=== PATIENT | male | born 1960 | race Caucasian/White ===

== ENCOUNTER → 2018-06-11 09:21 | Outpatient (CLI) | payer BC, SELFPAY ==
--- NOTE | 2018-06-11 09:26 | US_ITS ---
US abdomen limited History:Moderate quadrant pain Ordering Physician:Syl Dalal MD Patient Age: 57 years Comparison:None Findings: Pancreas:Unremarkable. No obvious mass or abnormal fluid collection. No ductal dilatation Liver:No focal liver lesions demonstrated. Homogeneous echogenicity. No intrahepatic biliary ductal dilatation evident Right Kidney:Unremarkable. Normal size and echogenicity. No hydronephrosis Gallbladder:No gallstones, gallbladder wall thickening, pericholecystic fluid, or biliary dilatation. Small hyperechoic focus is noted along the posterior aspect of the fundus of the gallbladder does not move and does not shadow suggestive of polyp. Normal amount of sludge/concentrated bile. Impression: 1. No gallstones, wall thickening, pericholecystic, or biliary dilatation. 2. Small amount sludge with a small gallbladder polyp .
== END ==
PROVIDERS: PCP Internal Medicine Adolescent Medicine; Visit Provider Internal Medicine Adolescent Medicine
DX: R10.11 Right upper quadrant pain (principal)
CPT/HCPCS: 76705

== ENCOUNTER 2018-06-14 11:12 | Outpatient (CLI) | payer SELFPAY ==
--- NOTE | 2018-06-14 12:11 | PC.NURSE ---
HERE FOR DOT PHYSICAL
== END 2018-06-14 12:57 | disposition home or self-care (01) ==
PROVIDERS: Visit Provider Nurse Practitioner Family
DX: Z02.4 Encounter for examination for driving license (principal)

== ENCOUNTER → 2018-08-09 14:56 | Outpatient (CLI) | payer BC, SELFPAY ==
--- NOTE | 2018-08-09 15:01 | XR_ITS ---
XR shoulder RT min 2V HISTORY: ITS.REASON: BILAT ROTATOR CUFF SYNDROME, BILAT SHOULDER PAIN ORDERING PHYSICIAN: Sly Dalal MD PATIENT AGE: 57 years Comparison: None FINDINGS: No fracture or dislocation. No lytic or blastic change. There is normal mineralization. The joint spaces are well-preserved. No significant degenerative/arthritic changes. No erosive changes evident. IMPRESSION: Negative, no acute finding
--- NOTE | 2018-08-09 15:01 | XR_ITS ---
XR shoulder LT min 2V HISTORY: ITS.REASON: BILAT ROTATOR CUFF SYNDROME, BILAT SHOULDER PAIN ORDERING PHYSICIAN: Sly Dalal MD PATIENT AGE: 57 years Comparison: None FINDINGS: No fracture or dislocation. No lytic or blastic change. There is normal mineralization. The joint spaces are well-preserved. No significant degenerative/arthritic changes. No erosive changes evident. IMPRESSION: Negative, no acute finding
== END ==
PROVIDERS: PCP Internal Medicine Adolescent Medicine; Visit Provider Internal Medicine Adolescent Medicine
DX: M75.102 Unspecified rotator cuff tear or rupture of left shoulder, not specified as traumatic (principal); M25.511 Pain in right shoulder
CPT/HCPCS: 73030

== ENCOUNTER → 2019-01-21 09:57 | Outpatient (CLI) | payer BC, SELFPAY ==
--- NOTE | 2019-01-21 10:15 | XR_ITS ---
XR chest 2V HISTORY: ITS.REASON: HTN,HYPERLIPIDEMIA ORDERING PHYSICIAN: RANDA Cao PATIENT AGE: 58 years COMPARISON: 02/08/2011. FINDINGS: The cardiomediastinal silhouette and pulmonary vascularity are within normal limits. The lungs are clear without infiltrates, suspicious nodules, or pleural effusions. No acute bony abnormalities. IMPRESSION: Negative chest, no acute finding
[2019-01-21 10:21] LABS: Basophils # 0.1 K/mm3 (0-0.2); Basophils % 0.9 % (0.1-2.0); Eosinophils # 0.1 K/mm3 (0.0-0.4); Eosinophils % 1.9 % (0.1-12.0); Hematocrit 43.2 % (42.0-52.0); Lymphocytes # 1.4 K/mm3 (0.7-4.5); Lymphocytes % 22.9 % (10-50); Mean Corpuscular HGB Conc 32.3 g/dL (31.8-35.4); Mean Corpuscular Hemoglobin 29.2 pg (27.0-31.2); Mean Corpuscular Volume 90.3 fl (80-94); Mean Platelet Volume 8.1 fl (7.4-10.4); Monocytes # 0.5 K/mm3 (0.1-1.0); Monocytes % 8.2 % (1.7-9.3); Neutrophils # 4.1 K/mm3 (1.8-7.8); Platelet Count 245 K/mm3 (142-424); Red Blood Count 4.79 M/mm3 (4.60-6.20); Red Cell Distribution Width 13.5 % (11.5-17.5); White Blood Count 6.2 K/mm3 (4.8-10.8)
[2019-01-21 11:39] LABS: Alanine Aminotransferase 49 U/L (12-78); Albumin Level 3.7 gm/dL (3.4-5.0); Alkaline Phosphatase 73 U/L (46-116); Anion Gap 12.1 mEq/L (5-15); Aspartate Amino Transferase 29 U/L (15-37); Bilirubin,Direct 0.1 mg/dL (0.0-0.2); Bilirubin,Indirect 0.4 mg/dL (0.0-0.9); Bilirubin,Total 0.5 mg/dL (0.2-1.0); Blood Urea Nitrogen 13 mg/dL (7-18); Carbon Dioxide 31 mmol/L (21.0-32.0); Chloride 101 mmol/L (98-107); Chol/HDL Ratio 5.9 (1-3.5); Cholesterol 159 mg/dL (140-200); Creatinine,Serum 1.19 mg/dL (0.70-1.30); Estimated Glomerular Filt Rate 63 ml/min (>60); GFR (African American) 76 ML/MIN (>60); Glucose 143 mg/dL (74-106); HDL Cholesterol 27 mg/dL (27-67); LDL Cholesterol 66 mg/dL (0-130); Potassium 4.1 mmoL/L (3.5-5.1); Sodium 140 mmol/L (136-145); Total Protein,Serum 7.5 gm/dL (6.4-8.2); Triglycerides 332 mg/dL (30-200); VLDL Cholesterol 66 mg/dL (0-40)
== END ==
PROVIDERS: PCP Internal Medicine Adolescent Medicine; Visit Provider Physician Assistant
DX: E78.2 Mixed hyperlipidemia (principal); I11.9 Hypertensive heart disease without heart failure; I25.10 Atherosclerotic heart disease of native coronary artery without angina pectoris; F17.200 Nicotine dependence, unspecified, uncomplicated
CPT/HCPCS: 36415; 71046; 80048; 80061; 80076; 85025

== ENCOUNTER → 2020-02-12 07:55 | Outpatient (CLI) | payer BC, SELFPAY ==
--- NOTE | 2020-02-12 07:57 | CA_ITS ---
APPROVED REPORT EXAM: Comprehensive 2D, Doppler, and color-flow Echocardiogram Tray Filler: Chantal Ayala RVT Ht: 6 ft 0 in Wt: 265lbs BSA: 2.40 BP: 129/85 mmHg Indications: SOA,COPD,HTN,HLD,CAD,GERD,PRE-OP,SMOKER,FINLEY,DM 2D Dimensions LVOT 1.73 cm (M/F) 1.5-2.5 M-Mode Dimensions RVDd 3.74 cm (0.9-2.6) LVDd 4.00 cm (3.5-5.7) LVDs 2.85 cm (3.5-5.7) IVSd 1.15 cm (0.6-1.1) PWd 0.64 cm (0.6-1.1) EF (Teich) 55.90% FS 28.80% EDV (Teich) 70.00 mL ESV (Teich) 30.90 mL LV Diastology E/A Ratio 1.11 Mitral Valve MV A Velocity 74.00 (40-130 cm/s) Left Ventricle Left atrium is mildly enlarged, left ventricle is normal size, mild concentric left ventricular hypertrophy, visually estimated ejection fraction 55% with no regional wall motion abnormality, grade 1 diastolic dysfunction seen without tissue Doppler evidence of raise left atrial pressure. Right Ventricle Right atrium and right ventricle are mildly enlarged with normal contractility. Aortic Valve Aortic valve is thickened and calcified, there is no aortic stenosis or aortic insufficiency. Mitral Valve Mitral valve is grossly normal, there is mild mitral regurgitation. Tricuspid Valve Tricuspid valve is grossly normal, there is mild tricuspid regurgitation, tricuspid regurgitation jet velocity is inadequate for calculation of the right ventricular systolic pressure. Pulmonic Valve Pulmonic valve is poorly visualized. Great Vessels Aortic root is normal size. Pericardium No significant pericardial effusion noted. Conclusion 1. Mild biatrial enlargement, normal left ventricular size, mild concentric left ventricular hypertrophy, visually estimated ejection fraction 55% with no regional wall motion abnormality, grade 1 diastolic dysfunction seen without tissue Doppler evidence of raise left atrial pressure. 2. Mildly enlarged right ventricle with normal contractility. 3. Thickened and calcified aortic valve without aortic stenosis or aortic insufficiency. 4. Mild mitral and tricuspid regurgitation. 5. No significant pericardial effusion noted. Electronically signed by : Kamlesh Ahmadi, 02/12/2020 15:40:30
== END ==
PROVIDERS: PCP Internal Medicine Adolescent Medicine; Visit Provider Physician Assistant
DX: R06.00 Dyspnea, unspecified (principal); I25.10 Atherosclerotic heart disease of native coronary artery without angina pectoris; I11.9 Hypertensive heart disease without heart failure; E78.2 Mixed hyperlipidemia; F17.200 Nicotine dependence, unspecified, uncomplicated
CPT/HCPCS: 93306

== ENCOUNTER → 2020-03-01 10:25 | Outpatient (CLI) | payer BC, SELFPAY ==
[2020-03-01 13:40] LABS: Coronavirus 19 IgG Antibody Negative (Negative); Coronavirus 19 IgM Antibody Negative (Negative)
== END ==
PROVIDERS: Visit Provider Surgery
DX: Z01.818 Encounter for other preprocedural examination (principal); Z12.11 Encounter for screening for malignant neoplasm of colon; Z13.810 Encounter for screening for upper gastrointestinal disorder
CPT/HCPCS: 36415; 86328

== ENCOUNTER 2020-03-02 07:35 | Day surgery (SDC) | payer BC, SELFPAY ==
[2020-02-27 13:33] VITALS: BMI 34.2
[2020-03-02 08:02] VITALS: BP 158/89; PULSE 88; RESP 18; TEMP 36.4; O2SAT 96
--- NOTE | 2020-03-02 08:22 | HMH.GSHP ---
HPI HPI: Patient is a 59-year-old male from [place] referred by Dr. Sly Dalal for upper endoscopy and colonoscopy to evaluate anemia. I had performed upper endoscopy on the patient in July 2018 for dyspepsia symptoms and he was found to have distal esophagitis and duodenitis by biopsy. Routine blood work at outside facility reportedly revealed hemoglobin of 9 with hematocrit of 32. Review of the record reveals previous hemoglobin of 14 with hematocrit of 43 at this institution 1 year ago. Patient denies symptoms of hematochezia or melena. He has never had prior colonoscopy. Of note, he is on Plavix for history of coronary artery disease without stenting [facility] History I have reviewed the patient's past medical history: Yes Medical History: Reports:: Chronic Obstructive Pulmonary Disease (COPD), Coronary Artery Disease, Gastroesophageal Reflux Disease(GERD), Hyperlipidemia, Hypertension Denies:: Cancer, Diabetes Mellitus Type 1, Diabetes Mellitus Type 2, Internal Pacemaker, Lung Disease, MRSA, Seizures *Have you ever received a pneumonia vaccine?: No *Have you received a flu vaccine this season?: No Other Medical History: Reports: Hypothyroidism Other Surgeries: Yes: Cardiac Catheterization, EGD, Other (Lower back surgery). No: Pacemaker Amputation: No Fractures: No - *Social History Last grade of school completed: 9th or 10th Smoking Status: Current every day smoker Tobacco Type: cigarettes # Packs/Day (cigarettes): 2 Alcohol Intake: never Substance Use Type: denies use *Occupational Status:: retired Housing: house Household Members: significant other, family *Travel in the last 8 weeks: None Family Hx:: No significant family history Review of Systems - Review of Systems Review of systems:: pertinent systems reviewed and negative unless documented below Meds Home Medications Medication Instructions Recorded Confirmed Type clopidogrel 75 mg tablet 75 mg PO DAILY tab 01/21/18 02/09/20 History lisinopril 10 1 tab PO DAILY tab 01/21/18 03/02/20 History mg-hydrochlorothiazide 12.5 mg tablet atorvastatin 40 mg tablet 40 mg PO QHS tab 01/22/18 03/02/20 History Cyanocobalamin (Vitamin B-12) 2,500 mcg PO DAILY 07/15/18 03/02/20 History [Vitamin B12 2.5mg Tab] Potassium 2 tab PO DAILY 07/15/18 03/02/20 History Glucosamine/D3/Boswellia Lauren 1 each PO BID 09/02/18 03/02/20 History [Osteo Bi-Flex Tablet] Lansoprazole 30 mg PO DAILY 09/02/18 03/02/20 History bupropion HCl 150 mg tablet,12 hr 150 mg PO DAILY each 02/09/20 03/02/20 History sustained-release empagliflozin 10 mg tablet 10 mg PO DAILY tab 02/09/20 03/02/20 History levothyroxine 150 mcg tablet 175 mcg PO DAILY tab 02/09/20 03/02/20 History Sodium, Potassium,Mag Sulfates See Rx Instructions PO .COMPLEX 03/02/20 03/02/20 History [Suprep Bowel Prep Kit] Allergies Allergy/AdvReac Type Severity Reaction Status Date / Time ibuprofen [From MOTRIN] Allergy Mild Verified 03/02/20 08:01 Exam Vital signs and Labs for Last 24 Hours: Temp Pulse Resp BP Pulse Ox 97.5 F L 88 18 158/89 H 96 03/02/20 08:02 03/02/20 08:02 03/02/20 08:02 03/02/20 08:02 03/02/20 08:02 I & O for Last 24 hours: Intake & Output 02/28/20 02/29/20 03/01/20 03/02/20 11:59 11:59 11:59 11:59 Weight 260 lb - *Routine HEENT Exam Head: Present: normocephalic Eye: Present: EOMI, PERRL ENT: Present: mucous membranes moist - *Routine Neck Exam Present: supple. Absent: lymphadenopathy - *Routine Respiratory Exam Present: CTA bilaterally - *Routine Cardiovascular Exam Present: RRR - *Routine Abdominal Exam Present: soft, normoactive bowel sounds. Absent: tenderness - *Routine Extremities Exam Absent: cyanosis, clubbing, edema - *Routine Skin Exam Present: warm. Absent: rash - *Routine Neurological Exam Present: alert, oriented X3 Assessment and Plan - Assessment and plan all Dx Assessment and Plan for all p
[2020-03-02 08:39] VITALS: O2SAT 97
[2020-03-02 08:47] LABS: POC Glucose,Bedside 174 (70-110)
--- NOTE | 2020-03-02 09:27 | P.PCN_ITS ---
- Procedure: Date: 03/02/20 Patient Date of :: 1960 Procedure Performed:: EsophagoGastroduodenoscopy with biopsies Colonoscopy to terminal ileum with polypectomy Indications:: Patient is a 59-year-old male from [place] referred by Dr. Sly romo or upper endoscopy and colonoscopy to evaluate anemia. I had performed upper endoscopy on the patient in July 2018 for dyspepsia symptoms and he was found to have distal esophagitis and duodenitis by biopsy. Routine blood work at outside facility reportedly revealed hemoglobin of 9 with hematocrit of 32. Review of the record reveals previous hemoglobin of 14 with hematocrit of 43 at this institution 1 year ago. Patient denies symptoms of hematochezia or melena. He has never had prior colonoscopy. Of note, he is on Plavix for history of coronary artery disease without stenting. Was made for follow-up upper endoscopy and colonoscopy to investigate anemia. Performing Provider:: Sami Graf MD Referring Provider:: Sly Dalal MD Sedation:: Propofol Procedure:: Was taken to endoscopy procedure room. He was positioned in a lateral decubitus position. Adequate intravenous sedation was achieved with anesthesia titration of propofol. Attention was first turned to upper endoscopy. Olympus endoscope was inserted via the oropharynx and advanced through the esophagus. Esophagus appeared unremarkable. Gastroesophageal junction was encountered at approximately 40 cm from the incisors. Stomach was cannulated and insufflated. Retroflexion revealed no evidence of any appreciable hiatal hernia. There were some prominent mucosal folds and findings consistent with mild diffuse nonerosive gastritis. Gastric mucosal biopsy was obtained for CLOtest for H. pylori. Pylorus was traversed. Within the duodenum there were findings of very mild nonerosive duodenitis. Biopsies were obtained. Gastric biopsies were obtained as well to evaluate for gastritis. Stomach was desufflated and the endoscope was withdrawn. Attention was turned to colonoscopy. Variable stiffness Olympus colonoscope was inserted via the anus. It was advanced to the cecum. Ileocecal valve and appendiceal orifice were clearly identified. Colonoscope was advanced briefly into the terminal ileum which appeared grossly normal. Colonoscope was withdrawn through the colon with careful surveillance. In the proximal sigmoid region there is a minor focal mucosal irregularity which was removed with cold biopsy forceps and sent sigmoid possible polyp. In the sigmoid colon there was a sessile small polyp removed with cold cutting snare. In the distal rectum there were a couple of mildly pedunculated polypoid lesions which were removed with cold cutting snare. Endoscope was withdrawn Findings:: Mild diffuse nonerosive gastritis Mild duodenitis Sigmoid, possible polyp, biopsied Sigmoid polyp removed with cold cutting snare Distal rectal polypoid lesion x2 removed with cold cutting snare Recommendations:: Follow-up on histopathology. May require repeat colonoscopy in 3 to 5 years. If iron deficiency anemia persists may need capsule endoscopy. Complications:: None Estimated blood obtained (mL): 2
[2020-03-02 09:29] VITALS: BP 112/67; PULSE 78; RESP 18; TEMP 36.1; O2SAT 92
[2020-03-02 09:39] VITALS: BP 107/50; PULSE 78; RESP 18; O2SAT 93
[2020-03-02 09:49] VITALS: BP 102/66; PULSE 75; RESP 18; O2SAT 91
[2020-03-02 10:10] VITALS: BP 118/73; PULSE 78; RESP 18; O2SAT 93
== END 2020-03-02 10:10 | disposition home or self-care (01) ==
PROVIDERS: PCP Internal Medicine Adolescent Medicine; Visit Provider Surgery
PROC: 0DJ08ZZ Inspection of Upper Intestinal Tract, Via Natural or Artificial Opening Endoscopic (ICD-10-PCS; CPT 43235; principal; 2020-03-02 08:30)
DX: K29.60 Other gastritis without bleeding (principal); K29.80 Duodenitis without bleeding; K63.5 Polyp of colon; K62.1 Rectal polyp; Z87.19 Personal history of other diseases of the digestive system; I25.10 Atherosclerotic heart disease of native coronary artery without angina pectoris; Z79.02 Long term (current) use of antithrombotics/antiplatelets; Z12.11 Encounter for screening for malignant neoplasm of colon; J44.9 Chronic obstructive pulmonary disease, unspecified; E78.5 Hyperlipidemia, unspecified; I10 Essential (primary) hypertension; E03.9 Hypothyroidism, unspecified; D64.9 Anemia, unspecified
CPT/HCPCS: 43239; 45385; 82962; 87339

== ENCOUNTER → 2020-03-25 08:23 | Outpatient (CLI) | payer BC, SELFPAY ==
--- NOTE | 2020-03-25 08:23 | FL_ITS ---
PROCEDURE: FL UPPER GI SMALL BOWEL CLINICAL INDICATION: anemia COMPARISON: No exams were available for comparison TECHNIQUE: FLUOROSCOPY TIME : 2 minutes and 7 seconds FINDINGS: Esophagus has an unremarkable appearance. No hiatal hernia is evident. There is mild prominence of the rugal folds which could be due to mild gastritis. No ulcer is evident. Small duodenal diverticulum is noted. The small bowel has an unremarkable appearance. No mass, obstructive lesion, or mucosal abnormality is evident. IMPRESSION: 1. Mild prominence of the rugal folds of the stomach which could be seen with gastritis. 2. Otherwise negative upper GI and small-bowel follow-through Dictated by: Ben Jo MD 03/26/2020 16:37 Ben Jo MD in [facility] 03/26/2020 16:37
== END ==
PROVIDERS: PCP Internal Medicine Adolescent Medicine; Visit Provider Surgery
DX: D64.9 Anemia, unspecified (principal)
CPT/HCPCS: 74246; 74248

== ENCOUNTER → 2020-03-29 09:29 | Outpatient (CLI) | payer BC, SELFPAY ==
--- NOTE | 2020-03-29 09:34 | NM_ITS ---
PROCEDURE: NM GASTRIC EMPTYING STUDY CLINICAL INDICATION: UPPER ABD PAIN COMPARISON: No exams were available for comparison TECHNIQUE: Dose 0.58 mCi technetium sulfur colloid in radial labeled meal FINDINGS: Time activity curve is generated following the course of gastric emptying. Studies carried out up 2 240 minutes. The 1/2 emptying time is 57 minutes which is within normal limits. 100 percent of the gastric contents emptied at 240 minutes. No obvious reflux. IMPRESSION: Normal gastric emptying time. Dictated by: Ben Jo MD 03/30/2020 11:32 Ben Jo MD in [facility] 03/30/2020 11:32
--- NOTE | 2020-03-29 10:00 | HMH.ITSHM ---
Current Home Medications as stated by this patient Oc Neal JR or administrative representative. []LISINOPRIL LEVOTHYROXINE EMPAGLIFLOZIN CLOPIDOGREL BUPROPION ATORVASTATIN POTASSIUM LANSOPRAZOLE VITMAIN B12
== END ==
PROVIDERS: PCP Internal Medicine Adolescent Medicine; Visit Provider Surgery
DX: R10.10 Upper abdominal pain, unspecified (principal)
CPT/HCPCS: 78264; A9541

== ENCOUNTER → 2020-04-06 08:43 | Outpatient (CLI) | payer BC, SELFPAY ==
--- NOTE | 2020-04-06 08:43 | US_ITS ---
PROCEDURE: US GALLBLADDER CLINICAL INDICATION: right upper quad pain COMPARISON: No exams were available for comparison FINDINGS: Pancreas: Unremarkable/Not well seen Liver: Unremarkable. There is appropriate direction of blood flow within a non dilated portal vein. Right kidney: Unremarkable appearing. No hydronephrosis. Gallbladder: There is an area increased echogenicity along the posterior aspect of the gallbladder which does appear to show some shadowing measuring 10 mm. This is probably related to some small stones. There may be an associated small polyp is well. No gallbladder wall thickening, pericholecystic fluid, or biliary dilatation is evident. IMPRESSION: Cholelithiasis otherwise negative right upper quadrant ultrasound. Dictated by: Ben Jo MD 04/06/2020 14:56 Ben Jo MD in [facility] 04/06/2020 14:56
== END ==
PROVIDERS: PCP Internal Medicine Adolescent Medicine; Visit Provider Surgery
DX: R10.11 Right upper quadrant pain (principal)
CPT/HCPCS: 76705

== ENCOUNTER 2020-05-04 09:19 | Outpatient (CLI) | payer BC, SELFPAY ==
[2020-05-04 09:20] VITALS: BMI 34.5
[2020-05-04 09:33] VITALS: BP 131/76; PULSE 86; RESP 18; TEMP 36.4; O2SAT 97
[2020-05-04 09:58] VITALS: BP 110/70; PULSE 75; RESP 18
[2020-05-04 10:20] VITALS: BP 128/77; PULSE 81; RESP 18; O2SAT 97
[2020-05-04 10:51] LABS: Lactate Dehydrogenase 148 U/L (313-618)
[2020-05-05 08:53] LABS: Haptoglobin 250 mg/dL (29-370)
[2020-05-05 15:54] LABS: Immunoglobulin A, Qn 347 mg/dL (90-386)
[2020-05-05 21:19] LABS: Tissue Transglutaminase IgA Ab 6 U/mL (0-3)
== END 2020-05-04 10:30 | disposition home or self-care (01) ==
LOC: INF 09:19
PROVIDERS: Visit Provider Internal Medicine Medical Oncology
DX: D50.9 Iron deficiency anemia, unspecified (principal)
CPT/HCPCS: 82784; 83010; 83516; 83615; 96365; J1439

== ENCOUNTER 2020-05-13 11:58 | Outpatient (CLI) | payer BC, SELFPAY ==
[2020-05-13 12:08] VITALS: BP 115/65; PULSE 97; RESP 20; TEMP 36.3; O2SAT 96
[2020-05-13 12:52] VITALS: BP 120/73; PULSE 85; RESP 20
== END 2020-05-13 12:52 | disposition home or self-care (01) ==
LOC: INF 11:58
PROVIDERS: Visit Provider Internal Medicine Medical Oncology
DX: D50.9 Iron deficiency anemia, unspecified (principal)
CPT/HCPCS: 96365; J1439

== ENCOUNTER → 2020-05-17 08:57 | Outpatient (POV) | payer BC, SELFPAY | PROVIDERS: Visit Provider Nurse Practitioner Family | DX: Z00.00 Encounter for general adult medical examination without abnormal findings (principal) ==

== ENCOUNTER → 2020-07-08 10:52 | Outpatient (CLI) | payer BC, SELFPAY ==
[2020-07-08 11:28] LABS: Basophils % 0.8 % (0.1-2.0); Eosinophils # 0.1 K/mm3 (0.0-0.4); Eosinophils % 1.7 % (0.1-12.0); Hematocrit 45.9 % (42.0-52.0); Hemoglobin 14.1 g/dL (14.1-18.0); Lymphocytes # 1.1 K/mm3 (0.7-4.5); Lymphocytes % 21.6 % (10-50); Mean Corpuscular HGB Conc 30.7 g/dL (31.8-35.4); Mean Corpuscular Hemoglobin 28.1 pg (27.0-31.2); Mean Corpuscular Volume 91.4 fl (80-94); Mean Platelet Volume 8.1 fl (7.4-10.4); Monocytes # 0.3 K/mm3 (0.1-1.0); Monocytes % 6.6 % (1.7-9.3); Neutrophils # 3.4 K/mm3 (1.8-7.8); Neutrophils % 69.3 % (37.0-80.0); Platelet Count 241 K/mm3 (142-424); Red Blood Count 5.03 M/mm3 (4.60-6.20); Red Cell Distribution Width 23.6 % (11.5-17.5); White Blood Count 4.9 K/mm3 (4.8-10.8)
[2020-07-08 12:36] LABS: Ferritin 10.4 ng/ml (17.9-464)
== END ==
PROVIDERS: PCP Internal Medicine Adolescent Medicine; Visit Provider Internal Medicine Medical Oncology
DX: D50.9 Iron deficiency anemia, unspecified (principal)
CPT/HCPCS: 36415; 82728; 85025

== ENCOUNTER → 2021-02-01 17:44 | Outpatient (CLI) | payer BC, SELFPAY ==
[2021-02-01 19:09] LABS: Basophils # 0.1 K/mm3 (0-0.2); Eosinophils # 0.1 K/mm3 (0.0-0.4); Eosinophils % 1.3 % (0.1-12.0); Hematocrit 45.7 % (42.0-52.0); Hemoglobin 15.3 g/dL (14.1-18.0); Lymphocytes # 1.1 K/mm3 (0.7-4.5); Lymphocytes % 20.7 % (10-50); Mean Corpuscular HGB Conc 33.5 g/dL (31.8-35.4); Mean Corpuscular Hemoglobin 30.7 pg (27.0-31.2); Mean Corpuscular Volume 91.6 fl (80-94); Mean Platelet Volume 9.4 fl (7.4-10.4); Monocytes # 0.4 K/mm3 (0.1-1.0); Monocytes % 8.1 % (1.7-9.3); Neutrophils # 3.7 K/mm3 (1.8-7.8); Neutrophils % 68.9 % (37.0-80.0); Platelet Count 235 K/mm3 (142-424); Red Blood Count 4.99 M/mm3 (4.60-6.20); Red Cell Distribution Width 15.1 % (11.5-17.5); White Blood Count 5.4 K/mm3 (4.8-10.8)
[2021-02-01 19:10] LABS: Alanine Aminotransferase 38 U/L (12-78); Albumin Level 4.5 g/dl (3.5-5.0); Albumin/Globulin Ratio 1.5 (1.1-1.8); Alkaline Phosphatase 91 U/L (38-126); Anion Gap 16.5 mEq/L (5-15); Aspartate Amino Transferase 68 U/L (17-59); Bilirubin,Total 0.7 mg/dl (0.2-1.3); Blood Urea Nitrogen 18 mg/dl (9-20); Calcium 9.1 mg/dl (8.4-10.2); Carbon Dioxide 27 mmol/L (22.0-30.0); Chloride 101 mmol/L (98-107); Chol/HDL Ratio 7.9 (1-3.5); Cholesterol 205 mg/dl (140-200); Estimated Glomerular Filt Rate 86 ml/min (>60); GFR (African American) 104 ML/MIN (>60); Globulin 3.1 g/dL (1.3-3.2); Glucose 189 mg/dl (74-100); HDL Cholesterol 26 mg/dl (40-60); Potassium 4.5 mmoL/L (3.5-5.1); Sodium 140 mmol/L (136-145); Total Protein,Serum 7.6 g/dl (6.3-8.2)
[2021-02-01 19:22] LABS: Direct LDL Cholesterol 57.38 mg/dL (100-129)
[2021-02-01 20:26] LABS: Hemoglobin A1C 8.4 % (4.0-6.0)
== END ==
PROVIDERS: Visit Provider Internal Medicine Adolescent Medicine
DX: I25.10 Atherosclerotic heart disease of native coronary artery without angina pectoris (principal); E03.9 Hypothyroidism, unspecified; E11.9 Type 2 diabetes mellitus without complications
CPT/HCPCS: 80053; 80061; 83036; 84443; 85025

== ENCOUNTER → 2021-02-11 07:40 | Outpatient (CLI) | payer BC, SELFPAY ==
--- NOTE | 2021-02-11 07:42 | CT_ITS ---
PROCEDURE: CT LUNG SCREENING CLINICAL INDICATION: H/O NICOTINE DEPENDENCE Forty-five pack year smoking history COMPARISON: No exams were available for comparison TECHNIQUE: The exam was performed on a GE Light Speed [address] scanner using 2.90 mGy CTDI. A low dose helical CT CHEST was performed on a multi-detector scanner. All CT scans at the facility use one or more dose reduction, viz: automated exposure control, ma/kV adjustment per patient size (including targeted exams where dose is matched to indication, i.e. head), or iterative reconstruction technique. The LDCT was performed in a facility that meets the criteria for the screening program. Data regarding this exam was submitted to ACR which is an approved registry. The order for this exam indicates that it came as a result of a lung cancer screening counseling shard decision-making visit that included all the elements required of such a visit including smoking cessation. The radiologist interpreting this exam meets the CMS criteria for the LDCT lung cancer screening program. The exam is reported using the Lung-RADS classification scale and reported to the ACR registry. NOTE: This study was performed for the specific purposes of lung cancer screening and is not an alternative to diagnostic chest CT. RADIATION DOSE: CTDI vol(CT dose Index-volume) = 2.90mG DLP (Dose Length Product) = 109.68 mGcm FINDINGS: 5 mm noncalcified nodule left upper lobe . Calcified nodule lingula with some scarring or atelectatic changes noted in the lingula. OTHER FINDINGS: Gynecomastia. Coronary artery calcifications. Enlarged right lobe and isthmus of the thyroid gland. IMPRESSION: Lung-RADS Category 3 Probably Benign regarding left upper lobe nodule Follow-up: [address] Chest with contrast. Dictated by: Ben Jo MD 02/14/2021 08:32 Ben Jo MD in [facility] 02/14/2021 08:32
--- NOTE | 2021-02-11 07:43 | US_ITS ---
PROCEDURE: US ABD. AORTA SCREENING CLINICAL INDICATION: H/O NICOTINE DEPENDENCE COMPARISON: US ABDLM US abdomen limited from 06/11/2018 FINDINGS: Normal caliber of the abdominal aorta with no evidence of aneurysm. Proximal common iliacs are unremarkable. IMPRESSION: Negative for abdominal aortic aneurysm Dictated by: Ben Jo MD 02/11/2021 16:26 Ben Jo MD in [facility] 02/11/2021 16:26
== END ==
PROVIDERS: PCP Internal Medicine Adolescent Medicine; Visit Provider Internal Medicine Adolescent Medicine
DX: Z87.891 Personal history of nicotine dependence (principal); Z12.2 Encounter for screening for malignant neoplasm of respiratory organs; Z13.6 Encounter for screening for cardiovascular disorders
CPT/HCPCS: 71271; 76705

== ENCOUNTER → 2021-03-24 12:15 | Outpatient (CLI) | payer BC, SELFPAY | PROVIDERS: PCP Internal Medicine Adolescent Medicine; Visit Provider Nurse Practitioner | DX: Z20.822 Contact with and (suspected) exposure to COVID-19 (principal) | CPT/HCPCS: C9803; U0003; U0005 ==

== ENCOUNTER 2021-08-11 13:24 | Emergency (ER) | payer BC, SELFPAY ==
[2021-08-11 13:25] VITALS: BP 112/69; PULSE 100; RESP 28; TEMP 37.1; O2SAT 95; BMI 32.5
--- NOTE | 2021-08-11 14:53 | HMH.EDGENADL ---
ED Disposition Clinical Impression: Pneumonia due to COVID-19 virus Disposition: Home, Self-Care Condition on Discharge: Fair Instructions: DI for COVID-19 (Suspected or Confirmed ) Additional Instructions: Decadron as prescribed. Zithromax as prescribed. Zofran as needed for nausea. Rest, drink plenty of fluids. Tylenol or Ibuprofen for fever and/or aches and pains. Monitor your symptoms. IF YOU HAVE AN EMERGENCY WARNING SIGN (INCLUDING TROUBLE BREATHING), SEEK EMERGENCY MEDICAL CARE IMMEDIATELY. Monitor your pulse ox at home. Return to the emergency department if pulse ox is persistently running less than 90%. COVID-19 Isolation: People with COVID-19 should isolate for 5 days. Then if they are asymptomatic (no symptoms) or their symptoms are resolving (without fever for 24 hours), follow that by 5 days of wearing a mask when around others to minimize the risk of infecting people you encounter. If you test positive for COVID-19 and never develop symptoms, day 0 is the day of your positive viral test (based on the date you were tested) and day 1 is the first full day after your positive test. If you develop symptoms after testing positive, your 5-day isolation period must start over. Day 0 is your first day of symptoms. Day 1 is the first full day after your symptoms developed. What to do: Stay in a separate room from other household members, if possible. Use a separate bathroom, if possible. Avoid contact with other members of the household and pets. Don?t share personal household items, like cups, towels, and utensils. Wear a mask when around other people if able. Prescriptions: dexAMETHasone [Decadron] 6 mg PO DAILY #7 tab Transmission Status: Pending to [facility] Azithromycin [Zithromax 250mg tab] 250 mg PO DAILY #4 tab Transmission Status: Pending to [facility] Ondansetron [Zofran 4mg ODT] 4 mg PO TIDP PRN #10 tab PRN Reason: Nausea And Vomiting Transmission Status: Pending to [facility] Referrals: Sly Dalal MD [Primary Care Provider] - - Critical Care Critical Care Time: No Attestation: On 08/11/21, the high probability of a clinically significant, sudden or life threatening deterioration of the following system(s) required my full and direct attention, intervention and personal management. The time I documented below is in addition to time spent performing reported procedures but includes the following listed in this critical care notation. Medical Decision Making - Cosmo Inquiry Pt receiving controlled substance: No Vital Signs: 08/11/21 13:25 08/11/21 14:56 08/11/21 15:30 Temperature 98.7 F 98.7 F Temperature Source Oral Oral Pulse Rate 86 Pulse Rate [Radial] 100 H 100 H Respiratory Rate 28 H 28 H Blood Pressure 106/64 L Blood Pressure [Right Arm] 112/69 112/69 Blood Pressure Mean [Right Arm] 83 83 Blood Pressure Position [Right Arm] Sitting Sitting 02 Sat by Pulse Oximetry 95 93 L 93 L Oxygen Delivery Method Room Air Room Air - Lab Data Lab Results 08/11/21 14:55: WBC 4.6 L, RBC 4.85, Hgb 12.4 L, Hct 39.7 L, MCV 81.9, MCH 25.6 L, MCHC 31.3 L, RDW 17.7 H, Plt Count 305, MPV 8.1, Neut % (Auto) 72.7, Lymph % (Auto) 19.5, Cascade % (Auto) 7.4, Eos % (Auto) 0.1, Baso % (Auto) 0.4, Neut # (Auto) 3.3, Lymph # (Auto) 0.9, Cascade # (Auto) 0.3, Eos # (Auto) 0.0, Baso # (Auto) 0.0 08/11/21 14:55: Sodium 138, Potassium 3.8, Chloride 103, Carbon Dioxide 26, Anion Gap 12.8, BUN 11, Creatinine 0.90, Estimated Creat Clear 134, Estimated GFR 86, Est GFR ( Amer) 104, Glucose 115 H, Calcium 8.7, Total Bilirubin 0.4, AST 59, ALT 36, Alkaline Phosphatase 66, Total Protein 8.0, Albumin 4.5, Globulin 3.5 H, Albumin/Globulin Ratio 1.3 08/11/21 14:55: Troponin I < 0.01 Result diagrams: 08/11/21 14:55 08/11/21 14:55 Orders (Tests/Meds): ED MEDICATIONS Generic Name Dose Route Start Last Admin Trade Name Freq PRN Reason Stop Dose
[2021-08-11 14:56] VITALS: BP 112/69; PULSE 100; RESP 28; TEMP 37.1; O2SAT 93; BMI 30.8
--- NOTE | 2021-08-11 15:02 | XR_ITS ---
FINAL REPORT CLINICAL HISTORY: cough, soa, positive covid home test COMPARISON: January 15, 2017 FINDINGS: Two views of the chest were obtained. The heart size and pulmonary vascularity are within normal limits. The mediastinum is normal. There is mild left lung base atelectasis. There is no pneumothorax. The bony thorax is intact. IMPRESSION: Mild left base atelectasis. Reviewed, Interpreted and Dictated by Sami Alejandro III, MD Transcribed by Juan Rajput Authenticated by Sami Alejandro III, MD on 08/11/2021 04:27:21 PM [facility]
[2021-08-11 15:12] LABS: Basophils % 0.4 % (0.1-2.0); Eosinophils % 0.1 % (0.1-12.0); Hematocrit 39.7 % (42.0-52.0); Hemoglobin 12.4 g/dL (14.1-18.0); Lymphocytes # 0.9 K/mm3 (0.7-4.5); Lymphocytes % 19.5 % (10-50); Mean Corpuscular HGB Conc 31.3 g/dL (31.8-35.4); Mean Corpuscular Hemoglobin 25.6 pg (27.0-31.2); Mean Corpuscular Volume 81.9 fl (80-94); Mean Platelet Volume 8.1 fl (7.4-10.4); Monocytes # 0.3 K/mm3 (0.1-1.0); Monocytes % 7.4 % (1.7-9.3); Neutrophils # 3.3 K/mm3 (1.8-7.8); Neutrophils % 72.7 % (37.0-80.0); Platelet Count 305 K/mm3 (142-424); Red Blood Count 4.85 M/mm3 (4.60-6.20); Red Cell Distribution Width 17.7 % (11.5-17.5); White Blood Count 4.6 K/mm3 (4.8-10.8)
[2021-08-11 15:30] VITALS: BP 106/64; PULSE 86; O2SAT 93
[2021-08-11 15:35] LABS: Alanine Aminotransferase 36 U/L (12-78); Albumin Level 4.5 g/dl (3.5-5.0); Albumin/Globulin Ratio 1.3 (1.1-1.8); Alkaline Phosphatase 66 U/L (38-126); Anion Gap 12.8 mEq/L (5-15); Aspartate Amino Transferase 59 U/L (17-59); Bilirubin,Total 0.4 mg/dl (0.2-1.3); Blood Urea Nitrogen 11 mg/dl (9-20); Calcium 8.7 mg/dl (8.4-10.2); Carbon Dioxide 26 mmol/L (22.0-30.0); Chloride 103 mmol/L (98-107); Creatinine Clearance Estimated 134 mL/min (50-200); Estimated Glomerular Filt Rate 86 ml/min (>60); GFR (African American) 104 ML/MIN (>60); Globulin 3.5 g/dL (1.3-3.2); Glucose 115 mg/dl (74-100); Potassium 3.8 mmoL/L (3.5-5.1); Sodium 138 mmol/L (136-145)
--- NOTE | 2021-08-11 15:39 | CT_ITS ---
FINAL REPORT TECHNIQUE: Then section axial CT images of the chest were obtained with contrast. Three-D reformatted images were also obtained.This study was performed with techniques to keep radiation doses as low as reasonably achievable (ALARA). Individualized dose reduction techniques using automated exposure control or adjustment of mA and/or kV according to the patient''s size were employed. CLINICAL HISTORY: covkulwinder shaikh FINDINGS: There is no evidence of pulmonary embolism. There is no evidence of thoracic aortic aneurysm or dissection. There is no evidence of mediastinal or hilar mass or adenopathy. There are patchy bilateral pulmonary ground-glass opacities consistent with bilateral pneumonia. There is mild bibasilar atelectasis. Limited images of the upper abdomen demonstrates hepatomegaly with mild fatty infiltration. IMPRESSION: No evidence of pulmonary embolism. Patchy bilateral pulmonary ground-glass opacities consistent with bilateral pneumonia. Hepatomegaly with mild fatty infiltration. Reviewed, Interpreted and Dictated by Sami Alejandro III, MD Transcribed by Bess Salomon Authenticated by Sami Alejandro III, MD on 08/11/2021 04:27:31 PM [facility]
--- NOTE | 2021-08-11 15:53 | PC.NURSE ---
Pt to rad
[2021-08-11 16:47] LABS: Troponin I < 0.01 ng/ml (0.00-0.034)
--- NOTE | 2021-08-11 17:27 | PC.NURSE ---
Dr Prado returned call.
[2021-08-11 18:31] VITALS: BP 105/58; PULSE 89; RESP 20; TEMP 37.1; O2SAT 94
== END 2021-08-11 18:34 | disposition home or self-care (01) ==
PROVIDERS: Emergency Provider Emergency Medicine; PCP Internal Medicine Adolescent Medicine
DX: U07.1 COVID-19 (principal); J12.82 Pneumonia due to coronavirus disease 2019; I25.10 Atherosclerotic heart disease of native coronary artery without angina pectoris; I10 Essential (primary) hypertension; E11.9 Type 2 diabetes mellitus without complications; E78.5 Hyperlipidemia, unspecified; I25.2 Old myocardial infarction; F17.210 Nicotine dependence, cigarettes, uncomplicated
CPT/HCPCS: 71046; 71275; 80053; 84484; 85025; 96365; 96375; 99283; C9803; J2405; Q9967; U0003; U0005

== ENCOUNTER → 2022-07-04 08:58 | Outpatient (CLI) | payer BC, SELFPAY ==
--- NOTE | 2022-07-04 09:03 | US_ITS ---
FINAL REPORT CLINICAL HISTORY: PERSONAL HX OF NICOTINE DEPENDENCE FINDINGS: Limited sonographic images were obtained of the abdomen to evaluate the abdominal aorta and iliac arteries. The abdominal aorta is within normal limits. The iliac arteries are within normal limits. IMPRESSION: No evidence of abdominal aortic aneurysm. Reviewed, Interpreted and Dictated by Lopez Carter MD Transcribed by Bess Salomon Authenticated and [facility]
== END ==
LOC: RAD 08:58
PROVIDERS: PCP Internal Medicine Adolescent Medicine; Visit Provider Internal Medicine Adolescent Medicine
DX: Z13.6 Encounter for screening for cardiovascular disorders (principal); Z87.891 Personal history of nicotine dependence
CPT/HCPCS: 76770

== ENCOUNTER → 2022-07-13 15:13 | Outpatient (CLI) | payer BC, SELFPAY ==
[2022-07-13 15:58] LABS: Basophils # 0.1 K/mm3 (0-0.2); Basophils % 1.6 % (0.1-2.0); Eosinophils # 0.1 K/mm3 (0.0-0.4); Eosinophils % 1.4 % (0.1-12.0); Hemoglobin 15.7 g/dL (14.1-18.0); Lymphocytes # 1.4 K/mm3 (0.7-4.5); Lymphocytes % 24.4 % (10-50); Mean Corpuscular Volume 96.9 fl (80-94); Mean Platelet Volume 8.2 fl (7.4-10.4); Monocytes # 0.3 K/mm3 (0.1-1.0); Monocytes % 5.5 % (1.7-9.3); Neutrophils # 3.9 K/mm3 (1.8-7.8); Platelet Count 273 K/mm3 (142-424); Red Blood Count 5.06 M/mm3 (4.60-6.20); Red Cell Distribution Width 13.2 % (11.5-17.5); White Blood Count 5.8 K/mm3 (4.8-10.8)
[2022-07-13 16:12] LABS: Chloride 101 mmol/L (98-107)
[2022-07-13 16:13] LABS: Potassium 3.9 mmoL/L (3.5-5.1); Sodium 139 mmol/L (136-145)
[2022-07-13 16:16] LABS: Alanine Aminotransferase 43 U/L (12-78); Albumin Level 4.4 g/dl (3.5-5.0); Albumin/Globulin Ratio 1.5 (1.1-1.8); Alkaline Phosphatase 108 U/L (38-126); Anion Gap 14.9 mEq/L (5-15); Aspartate Amino Transferase 49 U/L (17-59); Bilirubin,Total 0.7 mg/dl (0.2-1.3); Blood Urea Nitrogen 11 mg/dl (9-20); Calcium 9.1 mg/dl (8.4-10.2); Carbon Dioxide 27 mmol/L (22.0-30.0); Estimated Glomerular Filt Rate 115 ml/min (>60); GFR (African American) 139 ML/MIN (>60); Glucose 270 mg/dl (74-100); Iron 150 ug/dL (49-181); Total Protein,Serum 7.4 g/dl (6.3-8.2)
[2022-07-13 16:26] LABS: Total Iron Binding Capacity 389 ug/dL (261-462)
[2022-07-13 16:33] LABS: 25-OH Vitamin D, Total 20.7 ng/mL (30-100)
[2022-07-13 16:51] LABS: Ferritin 20.5 ng/ml (17.9-464)
[2022-07-13 19:35] LABS: Vitamin B12 > 1000 pg/mL (239-931)
== END ==
LOC: LAB 15:14
PROVIDERS: PCP Internal Medicine Adolescent Medicine; Visit Provider Internal Medicine Medical Oncology
DX: E61.1 Iron deficiency (principal); D64.9 Anemia, unspecified
CPT/HCPCS: 36415; 80053; 82306; 82607; 82728; 82746; 83540; 83550; 85025

== ENCOUNTER → 2022-10-09 11:43 | Outpatient (CLI) | payer BC, SELFPAY ==
--- NOTE | 2022-10-09 11:48 | XR_ITS ---
FINAL REPORT CLINICAL HISTORY: Lt shoulder pain COMPARISON: 08/09/2018 FINDINGS: LEFT SHOULDER 3 views demonstrate no acute fracture or dislocation. There is stable, mild degenerative changes of the acromioclavicular joint. The visualized bony structures are well aligned. No soft tissue abnormality is seen. IMPRESSION: No acute process. Reviewed, Interpreted and Dictated by Sami Alejandro III, MD Transcribed by Elyse Moore Authenticated and [facility]
[2022-10-09 13:17] LABS: Erythrocyte Sedimentation Rate 17 mm/hr (0-20)
[2022-10-09 14:03] LABS: Uric Acid 3.5 mg/dl (3.5-8.5)
== END ==
LOC: LAB 11:44
PROVIDERS: PCP Internal Medicine Adolescent Medicine; Visit Provider Nurse Practitioner Family
DX: M25.532 Pain in left wrist (principal); M25.432 Effusion, left wrist
CPT/HCPCS: 36415; 73030; 84550; 85651

== ENCOUNTER → 2022-10-16 14:22 | Outpatient (CLI) | payer BC, SELFPAY ==
--- NOTE | 2022-10-16 14:27 | US_ITS ---
FINAL REPORT CLINICAL HISTORY: ENLARGED THYROID FINDINGS: THYROID ULTRASOUND Thyroid gland is normal size. The parenchyma is heterogeneous and overall hypoechoic. There is a 2.8 x 1.8 x 1.0 cm isthmus nodule. No other well-defined nodule is seen. IMPRESSION: Solid, hypoechoic 2.8 cm isthmus nodule consistent with a TI-RADS 4. Recommend ultrasound-guided FNA. Reviewed, Interpreted and Dictated by Sami Alejandro III, MD Transcribed by Juan Rajput Authenticated and [facility]
--- NOTE | 2022-10-16 14:28 | CT_ITS ---
FINAL REPORT CLINICAL HISTORY: TOBACCO USE HISTORY. Former smoker. quit 1 year ago. smoked 2 ppd x 45 years. Copd COMPARISON: 02/11/2021 FINDINGS: CTDI vol (mGy): 2.90 DLP: 100.[address] images of the chest were obtained using the low-dose protocol for screening. There is no evidence of mediastinal or hilar mass or adenopathy. No axillary mass or adenopathy is identified. On the lung window images, a stable, 3 mm nodule in the lateral left upper lobe is seen on image number 32. IMPRESSION: Stable, 3 mm left upper lobe nodule. Lung RADS category 2. Recommend 12 month followup low-dose CT for further evaluation. Reviewed, Interpreted and Dictated by Sami Alejandro III, MD Transcribed by Elyse Moore Authenticated and [facility]
== END ==
LOC: RAD 14:23
PROVIDERS: PCP Internal Medicine Adolescent Medicine; Visit Provider Internal Medicine Adolescent Medicine
DX: Z87.891 Personal history of nicotine dependence (principal); Z12.2 Encounter for screening for malignant neoplasm of respiratory organs; E04.9 Nontoxic goiter, unspecified
CPT/HCPCS: 71271; 76536

== ENCOUNTER → 2022-10-25 09:23 | Outpatient (CLI) | payer BC, SELFPAY ==
--- NOTE | 2022-10-25 09:28 | US_ITS ---
FINAL REPORT CLINICAL HISTORY: ABN THYROID ULTRASOUND fna isthmus nodule Emil TOLENTINO FINDINGS: Ultrasound guided thyroid biopsy. HISTORY: Thyroid mass. PROCEDURE: After informed consent was obtained and a time-out was performed, the patient was prepped and draped in usual sterile fashion over the anterior neck. Utilizing local anesthesia and sterile technique with a 25-gauge needle, access to lesion was obtained. 4 passes were made. The patient received no conscious sedation. The patient tolerated procedure well and left the department in good condition. IMPRESSION: Status post ultrasound guided biopsy of thyroid without immediate complication. Films reviewed , interpreted and dictated by Dr. Alejandro Transcribed by Emil Ramesh PA-C. Reviewed, Interpreted and Dictated by Sami Alejandro III, MD Transcribed by RANDA Desouza Authenticated and [facility][1]
== END ==
LOC: RAD 09:23
PROVIDERS: PCP Internal Medicine Adolescent Medicine; Visit Provider Internal Medicine Adolescent Medicine
DX: R93.89 Abnormal findings on diagnostic imaging of other specified body structures (principal); E07.9 Disorder of thyroid, unspecified
CPT/HCPCS: 10005; 76536

== ENCOUNTER → 2023-01-05 08:57 | Outpatient (CLI) | payer BC, SELFPAY ==
--- NOTE | 2023-01-05 08:58 | US_ITS ---
FINAL REPORT CLINICAL HISTORY: thyroid isthmus nodule fna -- Chema TOLENTINO FINDINGS: Ultrasound guided thyroid biopsy. HISTORY: Thyroid Isthmus mass. Attending radiologist: Dr. Alejandro Physician Foreign Collection Clerk: Chema Iyer PA-C PROCEDURE: After informed consent was obtained and a time-out was performed, the patient was prepped and draped in usual sterile fashion over the mid neck. Utilizing local anesthesia and sterile technique with a 25-gauge needle, access to lesion was obtained. A total of 4 passes were made. The patient received no conscious sedation. The patient tolerated procedure well and left the department in good condition. IMPRESSION: Status post ultrasound guided biopsy of thyroid without immediate complication. Films reviewed , interpreted and dictated by Dr. Alejandro. Transcribed by Chema Iyer PA-C. Reviewed, Interpreted and Dictated by Sami Alejandro III, MD Transcribed by RANDA Gutierrez Authenticated and . [facility]
== END ==
LOC: RAD 08:58
PROVIDERS: PCP Internal Medicine Adolescent Medicine; Visit Provider Student in an Organized Health Care Education/Training Program
DX: E04.1 Nontoxic single thyroid nodule (principal)
CPT/HCPCS: 10005; 76536

== ENCOUNTER 2023-01-15 11:26 | Emergency (ER) | payer BC, SELFPAY ==
[2023-01-15 11:30] VITALS: BP 145/94; PULSE 113; RESP 18; TEMP 36.8; O2SAT 94; BMI 33.1
--- NOTE | 2023-01-15 11:52 | EXP.UTC ---
Discharge Plan Disposition Patient Disposition: Home, Self-Care Condition: Good Prescriptions Prescriptions: New promethazine 12.5 mg tablet 12.5 mg PO TID PRN (Reason: nausea and vomiting) Qty: 12 0RF No Action clopidogrel [Plavix] 75 mg tablet 75 mg PO DAILY atorvastatin 40 mg tablet 40 mg PO QHS levothyroxine 150 mcg tablet 175 mcg PO DAILY lisinopril 10 mg tablet 10 mg PO DAILY bupropion HCl 150 mg tablet sustained-release 12 hr 150 mg PO DAILY metformin 1,000 mg tablet 1,000 mg PO DAILY tadalafil 20 mg tablet 20 mg PO DAILY Patient Comments: TAKE ONE TABLET BY MOUTH ONCE a DAY NEEDED empagliflozin 10 mg tablet 25 mg PO DAILY potassium 99 MG tablet 2 tab PO DAILY cyanocobalamin (vitamin B-12) 2,500 MCG tablet 2,500 mcg PO DAILY lansoprazole 30 MG capsule,delayed release(DR/EC) 30 mg PO DAILY Rx Instructions: Stop zantac azithromycin 250 MG tablet 250 mg PO DAILY Qty: 4 0RF dexamethasone 6 MG tablet 6 mg PO DAILY Qty: 7 0RF ondansetron 4 MG tablet,disintegrating 4 mg PO TIDP PRN (Reason: Nausea And Vomiting) Qty: 10 0RF Referrals Follow up/Referrals: Syl Dalal MD [Primary Care Provider] - See instructions Activity Restrictions/Add. Instructions Additional Instructions/Restrictions: Drink extra fluids with and between meals. If you have difficulty drinking, try very small amounts of water or suck on ice chips. ? Avoid fruit juices, as these do not replace minerals and can actually increase diarrhea. ? Children and adults can use sports drinks to replenish electrolytes. Younger children and infants should use products formulated for children, like oral rehydration solutions. ? Eat food in small amounts and let your stomach recover. ? Get lots of rest. You may feel tired or weak. ? No greasy or fried foods for the next 24-48 hours BRAT diet Bananas Rice Apples and [place] ? Make sure to drink plenty of liquids ? Return if needed ? Straight to ER if any life threatening symptoms ? Zofran as prescribed ? Follow up with family doctor in the next 48-72 hours if no improvement or any worsening of symptoms Clinical Impressions Clinical Impression: Nausea & vomiting Qualifiers: Vomiting type: unspecified Qualified Code(s): R11.2 - Nausea with vomiting, unspecified Instructions Patient Instructions: DI for Nausea -- Adult, Nausea and Vomiting-Adult, Promethazine Discharge ED Provider: Allison Smallwood [facility] [place] HPI General Stated complaint: Vomiting Fever Mode of Arrival: Ambulatory Source of Information: Patient and Significant Other Limitations: No Limitations Time Seen by Provider: 01/15/23 11:52 Description of Symptoms (Recalled from Triage Doc. by RN): PATIENT C/O FEVER, NAUSEA, VOMITING AND DIARRHEA SINCE YESTERDAY HEENT Symptoms (Recalled from RN notes): No Resp Symptoms (Recalled from RN notes): No Skin Symptoms (Recalled from RN notes): No MS Symptoms (Recalled from RN notes): No Functional Status (Recalled from RN notes): WNL History of Present Illness Provider Complaint: Patient states that yesterday he started with some N/V and had a couple episodes of diarrhea but no diarrhea since and only having dry heaves States that he had low grade fever, sore throat and headache States grandchild is sick with similar symptoms Related Data Home Medications Medication Instructions Recorded Confirmed clopidogrel 75 mg tablet (Plavix) 75 mg PO DAILY Blood thinner 01/21/18 12/26/22 atorvastatin 40 mg tablet 40 mg PO QHS Cholesterol 01/22/18 12/26/22 cyanocobalamin (vitamin B-12) 2,500 mcg PO DAILY Supplement 07/15/18 12/26/22 2,500 mcg tablet potassium 99 mg tablet 2 tab PO DAILY Supplement 07/15/18 12/26/22 lansoprazole 30 mg capsule,delayed 30 mg PO DAILY GERD 09/02/18 12/26/22 release levothy
[2023-01-15 12:02] LABS: Coronavirus 19, PCR Not Detected (NotDetected); Influenza A, PCR Not Detected (NotDetected); Influenza B, PCR Not Detected (NotDetected)
[2023-01-15 12:27] LABS: UTC Strep Screen (Rapid) Negative (Negative)
[2023-01-15 13:04] VITALS: BP 145/94; PULSE 98; RESP 18; TEMP 36.8; O2SAT 97
== END 2023-01-15 13:11 | disposition home or self-care (01) ==
PROVIDERS: Emergency Provider Nurse Practitioner; PCP Internal Medicine Adolescent Medicine
DX: R11.2 Nausea with vomiting, unspecified (principal); R50.9 Fever, unspecified; R07.0 Pain in throat; R51.9 Headache, unspecified; F17.210 Nicotine dependence, cigarettes, uncomplicated; E03.9 Hypothyroidism, unspecified; E78.5 Hyperlipidemia, unspecified; E04.1 Nontoxic single thyroid nodule
CPT/HCPCS: 87636; 87880; 99204; 99212; G0463

== ENCOUNTER → 2023-06-20 09:24 | Outpatient (CLI) | payer BC, SELFPAY ==
[2023-06-20 10:18] LABS: Chloride 104 mmol/L (98-107)
[2023-06-20 10:19] LABS: Potassium 3.4 mmoL/L (3.5-5.1); Sodium 143 mmol/L (136-145)
[2023-06-20 10:21] LABS: Alanine Aminotransferase 60 U/L (12-78); Alkaline Phosphatase 85 U/L (38-126); Anion Gap 13.4 mEq/L (5-15); Aspartate Amino Transferase 60 U/L (17-59); Bilirubin,Total 0.8 mg/dl (0.2-1.3); Blood Urea Nitrogen 9 mg/dl (9-20); Carbon Dioxide 29 mmol/L (22.0-30.0); Cholesterol 91 mg/dl (140-200); Estimated Glomerular Filt Rate 86 ml/min (>60); GFR (African American) 103 ML/MIN (>60); Triglycerides 145 mg/dl (30-150); VLDL Cholesterol 29 mg/dL (0-40)
[2023-06-20 10:22] LABS: Albumin Level 4.4 g/dl (3.5-5.0); Albumin/Globulin Ratio 1.6 (1.1-1.8); Calcium 7.5 mg/dl (8.4-10.2); Chol/HDL Ratio 5.1 (1-3.5); Globulin 2.7 g/dL (1.3-3.2); Glucose 145 mg/dl (74-100); HDL Cholesterol 18 mg/dl (40-60); Total Protein,Serum 7.1 g/dl (6.3-8.2)
[2023-06-20 10:33] LABS: Direct LDL Cholesterol 56.75 mg/dL (100-129)
[2023-06-20 10:37] LABS: Free T4 (Free Thyroxine) 0.95 ng/dl (0.78-2.19)
== END ==
PROVIDERS: PCP Internal Medicine Adolescent Medicine; Visit Provider Nurse Practitioner Family
DX: E03.9 Hypothyroidism, unspecified (principal); E11.9 Type 2 diabetes mellitus without complications; E78.5 Hyperlipidemia, unspecified; I10 Essential (primary) hypertension; Z79.84 Long term (current) use of oral hypoglycemic drugs; Z72.0 Tobacco use
CPT/HCPCS: 36415; 80053; 80061; 83036; 84439; 84443

== ENCOUNTER 2023-10-01 10:09 | Outpatient (CLI) | payer BC, SELFPAY ==
[2023-10-01 10:46] LABS: Basophils % 0.8 % (0.1-2.0); Eosinophils # 0.1 K/mm3 (0.0-0.4); Eosinophils % 1.8 % (0.1-12.0); Hematocrit 44.6 % (42.0-52.0); Hemoglobin 15.2 g/dL (14.1-18.0); Lymphocytes # 1.5 K/mm3 (0.7-4.5); Mean Corpuscular Hemoglobin 32.1 pg (27.0-31.2); Mean Corpuscular Volume 94.3 fl (80-94); Mean Platelet Volume 8.4 fl (7.4-10.4); Monocytes # 0.4 K/mm3 (0.1-1.0); Monocytes % 6.2 % (1.7-9.3); Neutrophils # 3.6 K/mm3 (1.8-7.8); Neutrophils % 64.3 % (37.0-80.0); Platelet Count 211 K/mm3 (142-424); Red Blood Count 4.73 M/mm3 (4.60-6.20); Red Cell Distribution Width 13.9 % (11.5-17.5); White Blood Count 5.7 K/mm3 (4.8-10.8)
[2023-10-01 11:08] LABS: Chloride 106 mmol/L (98-107); Potassium 3.6 mmoL/L (3.5-5.1); Sodium 142 mmol/L (136-145)
[2023-10-01 11:10] LABS: Alanine Aminotransferase 43 U/L (12-78); Alkaline Phosphatase 86 U/L (38-126); Aspartate Amino Transferase 43 U/L (17-59); Bilirubin,Total 0.7 mg/dl (0.2-1.3); Blood Urea Nitrogen 13 mg/dl (9-20); Estimated Glomerular Filt Rate 114 ml/min (>60); GFR (African American) 138 ML/MIN (>60)
[2023-10-01 11:11] LABS: Albumin Level 4.3 g/dl (3.5-5.0); Albumin/Globulin Ratio 1.7 (1.1-1.8); Anion Gap 14.6 mEq/L (5-15); Calcium 9.8 mg/dl (8.4-10.2); Carbon Dioxide 25 mmol/L (22.0-30.0); Chol/HDL Ratio 3.4 (1-3.5); Cholesterol 120 mg/dl (140-200); Globulin 2.5 g/dL (1.3-3.2); Glucose 161 mg/dl (74-100); HDL Cholesterol 35 mg/dl (40-60); Iron 98 ug/dL (49-181); Total Protein,Serum 6.8 g/dl (6.3-8.2); Triglycerides 213 mg/dl (30-150); VLDL Cholesterol 43 mg/dL (0-40)
[2023-10-01 11:12] LABS: Hemoglobin A1C 7.8 % (4.0-6.0)
[2023-10-01 11:21] LABS: Total Iron Binding Capacity 363 ug/dL (261-462)
[2023-10-01 11:22] LABS: Direct LDL Cholesterol 59.96 mg/dL (100-129)
[2023-10-01 11:42] LABS: Thyroid Stimulating Hormone 0.22 uIU/mL (0.465-4.68)
== END 2023-10-01 23:59 ==
LOC: LAB 10:10
PROVIDERS: PCP Nurse Practitioner Family; Visit Provider Nurse Practitioner Family
DX: E11.9 Type 2 diabetes mellitus without complications (principal); E78.5 Hyperlipidemia, unspecified; E03.9 Hypothyroidism, unspecified; Z86.2 Personal history of diseases of the blood and blood-forming organs and certain disorders involving the immune mechanism; Z79.84 Long term (current) use of oral hypoglycemic drugs
CPT/HCPCS: 36415; 80053; 80061; 83036; 83540; 83550; 84443; 85025

== ENCOUNTER 2023-10-24 10:33 | Outpatient (CLI) | payer BC, SELFPAY ==
--- NOTE | 2023-10-24 10:36 | CT_ITS ---
FINAL REPORT TECHNIQUE: Axial CT images of the chest were obtained without contrast. Low-dose protocol was utilized. This study was performed with techniques to keep radiation doses as low as reasonably achievable (ALARA). Individualized dose reduction techniques using automated exposure control or adjustment of mA and/or kV according to the patient's size were employed. CLINICAL HISTORY: H/O TOBACCO USE, QUIT SMOKING 2 YEARS AGO, PREVIOUS 2 1/2 PPD X 45 YEARS COMPARISON: 10/16/2022 FINDINGS: CT CHEST WITHOUT, LOW DOSE SCREENING CT Di Vol: 2.90 mGy DLP: 106.55 mGy*cm There is no axillary, mediastinal, or hilar adenopathy. The heart size is normal. There is no pleural or pericardial effusion. The lung windows show a 3 mm nodule in the periphery of the left upper lobe again noted. There is a calcified granuloma in the lingula. There is a stable 2 mm nodule in the periphery of the right upper lobe best seen on image 31 of series 604. Limited images of the upper abdomen demonstrate no acute findings. IMPRESSION: Stable nodules. LR Category 2: 12 month follow-up low-dose chest CT is recommended. Reviewed, Interpreted and Dictated by Benson Juárez MD Transcribed by Siobhan Iraheta Authenticated and [facility]
== END 2023-10-24 23:59 | disposition home or self-care (01) ==
LOC: RAD 10:33
PROVIDERS: PCP Nurse Practitioner Family; Visit Provider Nurse Practitioner Family
DX: Z12.2 Encounter for screening for malignant neoplasm of respiratory organs; Z87.891 Personal history of nicotine dependence
CPT/HCPCS: 71271

== ENCOUNTER 2024-02-04 09:36 | Outpatient (CLI) | payer BC, SELFPAY ==
--- NOTE | 2024-02-04 09:40 | US_ITS ---
FINAL REPORT CLINICAL HISTORY: one year follow up COMPARISON: 10/16/2022 FINDINGS: Sonographic images of the thyroid gland were obtained. The thyroid gland is heterogeneous and enlarged. The right thyroid lobe measures 5.7 cm. in length. The left thyroid lobe measures 4.8 cm. in length. The thyroid isthmus measures 0.9 cm. Again noted is a dominant nodule in the isthmus measuring 2.5 x 1.0 cm, similar to the prior study. Interval FNA has been performed of this nodule. Upper pole right lobe 1.2 x 0.8 x 0.8 cm solid hypoechoic TR 4 nodule is visually stable and was not as well-seen on prior exam. IMPRESSION: Stable thyroid nodules as above. Reviewed, Interpreted and Dictated by Sami Alejandro III, MD Transcribed by Siobhan Iraheta Authenticated and [facility]
[2024-02-04 10:40] LABS: Basophils # 0.1 K/mm3 (0-0.2); Eosinophils # 0.1 K/mm3 (0.0-0.4); Eosinophils % 1.5 % (0.1-12.0); Hematocrit 43.8 % (42.0-52.0); Lymphocytes # 1.5 K/mm3 (0.7-4.5); Lymphocytes % 25.3 % (10-50); Mean Corpuscular HGB Conc 34.2 g/dL (31.8-35.4); Mean Corpuscular Volume 93.7 fl (80-94); Monocytes # 0.4 K/mm3 (0.1-1.0); Monocytes % 6.7 % (1.7-9.3); Neutrophils # 3.8 K/mm3 (1.8-7.8); Neutrophils % 65.6 % (37.0-80.0); Platelet Count 208 K/mm3 (142-424); Red Blood Count 4.68 M/mm3 (4.60-6.20); Red Cell Distribution Width 14.2 % (11.5-17.5); White Blood Count 5.8 K/mm3 (4.8-10.8)
[2024-02-04 12:11] LABS: Alanine Aminotransferase 38 U/L (12-78); Albumin Level 4.1 g/dl (3.5-5.0); Albumin/Globulin Ratio 1.4 (1.1-1.8); Alkaline Phosphatase 71 U/L (38-126); Anion Gap 16.1 mEq/L (5-15); Aspartate Amino Transferase 36 U/L (17-59); Bilirubin,Total 0.7 mg/dl (0.2-1.3); Blood Urea Nitrogen 11 mg/dl (9-20); Carbon Dioxide 26 mmol/L (22.0-30.0); Chloride 102 mmol/L (98-107); Chol/HDL Ratio 4.1 (1-3.5); Cholesterol 142 mg/dl (140-200); Estimated Glomerular Filt Rate 114 ml/min (>60); GFR (African American) 138 ML/MIN (>60); Globulin 2.9 g/dL (1.3-3.2); Glucose 141 mg/dl (74-100); HDL Cholesterol 35 mg/dl (40-60); Potassium 3.1 mmoL/L (3.5-5.1); Sodium 141 mmol/L (136-145); Triglycerides 220 mg/dl (30-150); VLDL Cholesterol 44 mg/dL (0-40)
[2024-02-04 13:04] LABS: Direct LDL Cholesterol 66.39 mg/dL (100-129)
[2024-02-04 13:26] LABS: Thyroid Stimulating Hormone < 0.02 uIU/mL (0.465-4.68)
[2024-02-04 17:31] LABS: Hemoglobin A1C 6.7 % (4.0-6.0)
== END 2024-02-04 23:59 | disposition home or self-care (01) ==
LOC: RAD 09:37
PROVIDERS: PCP Nurse Practitioner Family; Visit Provider Nurse Practitioner
DX: E04.1 Nontoxic single thyroid nodule (principal); E11.9 Type 2 diabetes mellitus without complications; E78.5 Hyperlipidemia, unspecified; I25.10 Atherosclerotic heart disease of native coronary artery without angina pectoris; E03.9 Hypothyroidism, unspecified
CPT/HCPCS: 36415; 76536; 80050; 80053; 80061; 83036; 84443; 85025

== ENCOUNTER 2024-02-12 14:17 | Outpatient (POV) | payer BC, SELFPAY | END 2024-02-12 23:59 | disposition home or self-care (01) | LOC: SC 14:18 | PROVIDERS: PCP Nurse Practitioner Family; Visit Provider Dermatology | DX: Z00.00 Encounter for general adult medical examination without abnormal findings (principal) ==

== ENCOUNTER 2024-10-27 14:59 | Outpatient (CLI) | payer BC, SELFPAY ==
--- OUTSIDE RECORDS SUMMARY | 2024-10-27 15:01 | XMS_ITS ---
Author Organization Unknown Medications Medication Instructions Effective Dates (start - stop) Status linagliptin 5 MG Oral Tablet [Tradjenta] [id number]:00:00.000+00:0 0 - Completed metformin hydrochloride 1000 MG Oral Tablet 0932-76-70N81:00:00.000+00:0 0 - Completed levothyroxine sodium 0.175 M G Oral Tablet 4826-32-87M16:00:00.000+00:0 0 - Completed semaglutide 14 MG Oral Table t [Rybelsus] 4507-42-07U47:00:00.000+00:0 0 - Completed metformin hydrochloride 1000 MG Oral Tablet 8599-28-72J30:00:00.000+00:0 0 - Completed metformin hydrochloride 1000 MG Oral Tablet 3242-00-85J26:00:00.000+00:0 0 - Completed levothyroxine sodium 0.175 M G Oral Tablet 0553-52-31L55:00:00.000+00:0 0 - Completed semaglutide 14 MG Oral Table t [Rybelsus] 5655-77-55W24:00:00.000+00:0 0 - Completed semaglutide 7 MG Oral Tablet [Rybelsus] 5892-19-05I28:00:00.000+00:0 0 - Completed levothyroxine sodium 0.175 M G Oral Tablet 2617-04-97X36:00:00.000+00:0 0 - Completed linagliptin 5 MG Oral Tablet [Tradjenta] 0478-16-71O11:00:00.000+00:0 0 - Completed levothyroxine sodium 0.175 M G Oral Tablet 8420-48-05E48:00:00.000+00:0 0 - Completed semaglutide 14 MG Oral Table t [Rybelsus] 8758-16-06X95:00:00.000+00:0 0 - Completed levothyroxine sodium 0.175 M G Oral Tablet 4777-92-47S16:00:00.000+00:0 0 - Completed levothyroxine sodium 0.175 M G Oral Tablet 4499-60-82I36:00:00.000+00:0 0 - Completed levothyroxine sodium 0.175 M G Oral Tablet 4923-27-59N58:00:00.000+00:0 0 - Completed levothyroxine sodium 0.175 M G Oral Tablet 3978-90-27W59:00:00.000+00:0 0 - Completed linagliptin 5 MG Oral Tablet [Tradjenta] 8979-94-32C94:00:00.000+00:0 0 - Completed semaglutide 7 MG Oral Tablet [Rybelsus] 5536-36-33F35:00:00.000+00:0 0 - Completed linagliptin 5 MG Oral Tablet [Tradjenta] 5826-72-95P48:00:00.000+00:0 0 - Completed semaglutide 7 MG Oral Tablet [Rybelsus] 2330-57-68B16:00:00.000+00:0 0 - Completed semaglutide 7 MG Oral Tablet [Rybelsus] 7528-06-88F06:00:00.000+00:0 0 - Completed metformin hydrochloride 1000 MG Oral Tablet 7260-47-06L01:00:00.000+00:0 0 - Completed levothyroxine sodium 0.175 M G Oral Tablet 9664-70-45Y24:00:00.000+00:0 0 - Completed levothyroxine sodium 0.175 M G Oral Tablet 5017-45-80Y47:00:00.000+00:0 0 - Completed linagliptin 5 MG Oral Tablet [Tradjenta] 5091-25-99I37:00:00.000+00:0 0 - Completed 0.5 ML dulaglutide 1.5 MG/ML Auto-Injector [[facility]] 0765-17-75D13:00:00.000+00:0 0 - Completed metformin hydrochloride 1000 MG Oral Tablet 3071-54-29R78:00:00.000+00:0 0 - Completed meloxicam 7.5 MG Oral Tablet 09-05-06:00:00.000+00:00 - Completed metformin hydrochloride 1000 MG Oral Tablet 9289-47-40M11:00:00.000+00:0 0 - Completed lisinopril 10 MG Oral Tablet 202 09-04-05:00:00.000+00:00 - Completed clopidogrel 75 MG Oral Tablet 20 21-09-26:00:00.000+00:00 - Completed atorvastatin 40 MG Oral Tablet 2 091-70-14A33:00:00.000+00:00 - Completed lisinopril 10 MG Oral Tablet 202 09-04-03:00:00.000+00:00 - Completed promethazine hydrochloride 1 2.5 MG Oral Tablet 7779-50-74E71:00:00.000+00:0 0 - Completed lisinopril 10 MG Oral Tablet 08-10-23:00:00.000+00:00 - Completed lisinopril 10 MG Oral Tablet 08-11-23:00:00.000+00:00 - Completed diclofenac sodium 75 MG Ivory yed Release Oral Tablet 2075-10-42K05:00:00.000+00:0 0 - Completed clopidogrel 75 MG Oral Tablet 23-03-16:00:00.000+00:00 - Completed lisinopril 10 MG Oral Tablet 09-01-05:00:00.000+00:00 - Completed meloxicam 7.5 MG Oral Tablet 09-03-04:00:00.000+00:00 - Completed lisinopril 10 MG Oral Tablet 08-09-14:00:00.000+00:00 - Completed lisinopril 10 MG Oral Tablet 09-03-03:00:00.000+00:00 - Completed lisinopril 10 MG Oral Tablet 202 08-31-01:00:00.000+00:00 - Completed atorvastatin 40 MG Oral Tablet 2 500-50-99A96:00:00.000+00:00 - Completed meloxicam 7.5 MG Oral Tablet 202 09-04-06:00:00.000+00:00 - Completed atorvastatin 40 MG Oral Tablet 2 011-20-87G04:00:00.000+00:00 - Completed atorvastatin 40 MG Oral Tablet 2 055-66-17W23:00:00.000+00:00 - Completed lisinopril 10 MG Oral Tablet 202 08-12-15:00:00.000+00:00 - Completed lisinopril 10 MG Oral Tablet 202 08-13-20:00:00.000+00:00 - Completed clopidogrel 75 MG Oral Tablet 20 22-12-22:00:00.000+00:00 - Completed clopidogrel 75 MG Oral Tablet 20 22-06-19:00:00.000+00:00 - Completed lisinopril 10 MG Oral Tablet 202 09-05-02:00:00.000+00:00 - Completed meloxicam 7.5 MG Oral Tablet 202 09-02-09:00:00.000+00:00 - Completed atorvastatin 40 MG Oral Tablet 2 197-52-46B93:00:00.000+00:00 - Completed ondansetron 4 MG Oral Tablet 09-02-09:00:00.000+00:00 - Completed ondansetron 4 MG Oral Tablet 08-13-20:00:00.000+00:00 - Completed atorvastatin 40 MG Oral Tablet 2 741-01-59O44:00:00.000+00:00 - Completed ketoconazole 20 MG/ML [facility] 7604-96-01Q80:00:00.000+00:0 0 - Completed atorvastatin 40 MG Oral Tablet 2 262-92-44U21:00:00.000+00:00 - Completed atorvastatin 40 MG Oral Tablet 2 215-81-62M36:00:00.000+00:00 - Completed atorvastatin 40 MG Oral Tablet 2 382-31-10N81:00:00.000+00:00 - Completed atorvastatin 40 MG Oral Tablet 2 163-19-08V93:00:00.000+00:00 - Completed Patient Care team information Name Category Status Period Participants - - Proposed period not known -
--- NOTE | 2024-10-27 15:02 | CT_ITS ---
FINAL REPORT TECHNIQUE: Thin section axial images were obtained from the lung apices to the upper abdomen by computed tomography. Reformatted images were obtained and reviewed. This study was performed with techniques to keep radiation doses al low as reasonably achievable (ALARA). Individualized dose reduction techniques using automated exposure control or adjustment of mA and/or kV according to the patient's size were employed. CLINICAL HISTORY: low dose lung SCREENING former smoker x 3 years 2.5ppd x 45 years COMPARISON: 10/24/2023 FINDINGS: CHEST CT LOW DOSE 62-year-old male, former smoker who quit 3 years ago, [id number] history. CTDI vol (mGy): 2.90 DLP (mGy-cm): 105.25 There is no axillary adenopathy. There is no mediastinal or hilar mass or adenopathy. The heart is normal in size. There is no pericardial or pleural effusion. Lung window images demonstrate a 3 mm peripheral nodule, seen on today's exam on image #7 of series 4, stable. There is a 2 mm peripheral right upper lobe nodule, best seen on image #40 of series 4, slightly less evident than seen on the prior exam. There is a new ground glass right upper lobe nodule, seen on image #30 of series 4. Limited images of the upper abdomen are unremarkable. IMPRESSION: Lung-RADS category 2. Recommend 12 month follow up low dose chest CT. Reviewed, Interpreted and Dictated by Benson Juárez MD Transcribed by Marjorie De La Cruz Authenticated and [facility]
== END 2024-10-27 23:59 | disposition home or self-care (01) ==
LOC: RAD 15:00
PROVIDERS: PCP Nurse Practitioner Family; Visit Provider Nurse Practitioner Family
DX: Z12.2 Encounter for screening for malignant neoplasm of respiratory organs (principal); R91.1 Solitary pulmonary nodule; Z87.891 Personal history of nicotine dependence
CPT/HCPCS: 71271

== ENCOUNTER 2025-01-05 15:15 | Outpatient (CLI) | payer BC, SELFPAY ==
--- OUTSIDE RECORDS SUMMARY | 2024-10-04 17:30 | XMS_ITS ---
Author Organization [facility] Address [address] [place] [address] Care Team Providers Care Sterile Instrument Technician Name Role Phone Sly Dalal Primary Care Provider [phone] Sly Dalal Unavailable Unavailable Migration, Provider Unavailable Unavailable Allergies Allergen (clinical drug ingredient) Drug/Non Drug Allergy documented on EMR Reaction Allergy Type Onset Date Status ibuprofen Ibuprofen hives Drug Allergy Active REASON FOR VISIT [facility] Encounter Medications Medication SIG (Take, Route, Frequency, Duration) Notes Start Date End Date Status metFORMIN HCl 1000 MG 1 tab orally 2 times a day; Duration: 90 days Active Mounjaro 12.5 MG/0.5 ML DIRECTED SUBCUTANEOUSLY ONCE A WEEK; Duration: 28 DAYS *Please review and pick correct strength-formulat ion from [facility] options. If intended option is not shown, discontinue and re-order from Quick Search* 08/25/2024 Active Ondansetron HCl 4 MG 1 tab(s) orally anju ry 8 hours; Duration: 10 days 06/20/2022 Active Meloxicam 7.5 MG 1 tab(s) orally once a day; Duration: 90 days Active Tadalafil 5 MG 1 tab(s) orally once every 3 days PRN; Duration: 30 days 08/25/2024 Active Atorvastatin Calcium 40 MG 1 tab(s) orally once a day; Duration: 90 days Active Lansoprazole 30 MG 1 cap(s) orally once a day; Duration: 90 days Active Potassium Chloride ER 20 MEQ 1 tab(s) orally once a day; Duration: 90 days Active Levothyroxine Sodium 150 MCG 1 tab(s) orally once a day; Duration: 30 days 02/07/2024 Active Lisinopril 10 MG 1 tab(s) orally once a day; Duration: 90 days Active Plavix 75 MG 1 tab(s) orally once a day; Duration: 90 days Active Encounters Encounter Location Date Provider Diagnosis [facility]ly [facility] [address] [place] [address] 10/04/2024 Provider Migration Diabetes mellitus type 2, noninsulin dependent E11.9 and Erectile dysfunction, unspecified erectile dysfunction type N52.9 Assessments Encounter Date Diagnosis (ICD Code) Assessment Notes Treatment Notes Treatment Clinical Notes Section Notes 10/04/2024 Diabetes mellitus type 2, noninsulin dependent (ICD-10 - E11.9) 10/04/2024 Erectile dysfunction, unspecified erectile dysfunction type (ICD-10 - N52.9) Plan Of Treatment Medication Medication Name Sig Start Date Stop Date Notes metFORMIN HCl 1000 MG 1 tab orally 2 michelle es a day; Duration: 90 days Mounjaro 12.5 MG/0.5 ML DIRECTED SUBCUTANEOUSLY ONCE A WEEK; Duration: 28 DAYS 08/25/2024 *Please review a nd pick correct strength-formulation from [employer] options. If intended option is not shown, discontinue and re-order from Quick Search* Tadalafil 5 MG 1 tab(s) orally once every 3 days PRN; Duration: 30 days 08/25/2024 Atorvastatin Calcium 40 MG 1 tab(s) orally once a day; Duration: 90 days Next Appt Details Provider Name:Betty Manuel, 02/13/2025 10:30:00 AM, [address], [address], Progress Notes * RONEYOcDOB:[birth year] (64 yo M)Acc No.[id number]:10/04/2024 Patient: Oc KUMAR Provider: Mega Tobin :1960 A ge:63 Y S ex:Male Date:10/04/2024 Address:[address] [place] [address] [id number] Pcp:Sly Dalal Subjective: * Chief Complaints: * 1 . Multum To Medispan Conversion Encounter. * Medical History: * Medications: T aking Ondansetron HCl 4 MG Tablet 1 tab(s) orally every 8 hours , Taking Plavix 75 MG Tablet 1 tab(s) orally once a day , Taking Lansoprazole 30 MG Capsule Delayed Release 1 cap(s) orally once a day , Taking Lisinopril 10 MG Tablet 1 tab(s) orally once a day , Taking Levothyroxine Sodium 150 MCG Tablet 1 tab(s) orally once a day , Taking Potassium Chloride ER 20 MEQ Tablet Extended Release 1 tab(s) orally once a day , Taking Meloxicam 7.5 MG Tablet 1 tab(s) orally once a day * Allergies: I buprofen: hives. Objective: * Vitals: Assessment: * Assessment: 1. D iabetes mellitus type 2, noninsulin dependent - E11.9 (Primary) 2 . E rectile dysfunction, unspecified erectile dysfunction type - N52.9 Plan: * Treatment: 2. E rectile dysfunction, unspecified erectile dysfunction type Start Tadalafil Tablet, 5 MG, 1 tab(s), orally, once every 3 days PRN, 30 days, 10, Refills 0. 3. O thers Refill Atorvastatin Calcium Tablet, 40 MG, 1 tab(s), orally, once a day, 90 days, 90, Refills 1;?Refill metFORMIN HCl Tablet, 1000 MG, 1 tab, orally, 2 times a day, 90 days, 180, Refills 1. * * Electronic signature of Prov ider Migration on 01/05/2025 at 03:18 PM EDT Sign off status: Pending * Provider: Mega bates Migration Date: 0 10/04/2024 Generated for Ezra rhodes/Quinton/Parvez on: 0 01/05/2025 03:18 PM EDT
--- OUTSIDE RECORDS SUMMARY | 2025-01-05 07:35 | XMS_ITS ---
Author Organization [facility] Address [address] [place] [address] Care Team Providers Care Camp Advisor Name Role Phone Sly Dalal Primary Care Provider Sly Dalal Unavailable Unavailable Betty Isbell Unavailable [phone] REASON FOR VISIT xray Encounters Encounter Location Date Provider Diagnosis [facility] [address] [address] 01/05/2025 Betty Isbell Pain in left hand M79.642 and Pain in left wrist M25.532 Assessments Encounter Date Diagnosis (ICD Code) Assessment Notes Treatment Notes Treatment Clinical Notes Section Notes 01/05/2025 Pain in left hand (ICD-10 - M79.642) 01/05/2025 Pain in left wrist (ICD-10 - M25.532) Plan Of Treatment Pending Test Test Name Order Date X ray : Hand, Left 01/05/2025 X ray : Wrist, Left 01/05/2025 Next Appt Details Provider Name:Betty Manuel, 02/13/2025 10:30:00 AM, [address] [place] [address], [id number], Progress Notes * Oc SIMDOB:[birth year] (64 yo M)Acc No.[id number]:01/05/2025 Patient: Oc KUMAR :1960 A ge:64 Y S ex:Male Address: [address] , [place], [address] Subjective: * Chief Complaints: * X ray * Medical History: * Surgical History: * Hospitalization/Major Diagno stic Procedure: * Medications: Objective: * Vitals: * Physical Examination: Assessment: * Assessment: 1. P ain in left hand - M79.642 (Primary) 2 . P ain in left wrist - M25.532? Plan: * Treatment: 2.?Pain in left wrist?Imaging: X ray : Wrist, Left* * Procedure Codes: * true * Date: Generated for Ezra rhodes/Quinton/Parvez on: 0 01/05/2025 03:18 PM EDT
--- OUTSIDE RECORDS SUMMARY | 2025-01-05 15:18 | XMS_ITS | Patient Health Record ---
Author Organization [facility] Address [address] [place] [address] Care Team Providers Care Service Parts Driver Name Role Phone Sly Dalal Primary Care Provider [phone] Sly Dalal Unavailable Unavailable Betty Isbell Unavailable [phone] Migration, Provider Unavailable Unavailable Allergies Allergen (clinical drug ingredient) Drug/Non Drug Allergy documented on EMR Reaction Allergy Type Onset Date Status ibuprofen Ibuprofen hives Drug Allergy Active Results Component Value Reference Range Notes M-Complete Blood Count Auto Diff Reviewed date:02/07/2024 10:18:07 AM Interpretation: Performing Lab: Notes/Report: WBC 5.8 4.8-10.8 K/mm3 RBC 4.68 4.60-6.20 M/mm3 HGB 15.0 14.1-18.0 g/dL HCT 43.8 42.0-52.0 % MCV 93.7 80-94 fl MCH 32.0 27.0-31.2 pg MCHC 34.2 31.8-35.4 g/dL RDW 14.2 11.5-17.5 % PLT 208 142-424 K/mm3 MPV 8.0 7.4-10.4 fl NE% 65.6 37.0-80.0 % LY% 25.3 10-50 % MO% 6.7 1.7-9.3 % EO% 1.5 0.1-12.0 % BA% 1.0 0.1-2.0 % NE# 3.8 1.8-7.8 K/mm3 LY# 1.5 0.7-4.5 K/mm3 MO# 0.4 0.1-1.0 K/mm3 EO# 0.1 0.0-0.4 K/mm3 BA# 0.1 0-0.2 K/mm3 M-Thyroid Stimulating Hormon e Reviewed date:02/07/2024 10:18:07 AM Interpretation: Performing Lab: Notes/Report: IF TSH IS ABNORMAL, REFLEX TO A T4F TSH < 0.02 0.465-4.68 uIU/mL M-Hemoglobin A1C Reviewed date:02/07/2024 10:18:07 AM Interpretation: Performing Lab: Notes/Report: HGBA1C 6.7 4.0-6.0 % < 6% Non-Diabetic Level < 7% Controlled Diabetic Level > 8% Poorly Controlled Diabetic Level M-Comprehensive Metabolic Pa brook Reviewed date:02/07/2024 10:18:07 AM Interpretation: Performing Lab: Notes/Report: IF TSH IS ABNORMAL, REFLEX TO A T4F NA 141 136-145 mmol/L K 3.1 3.5-5.1 mmoL/L CL 102 98-107 mmol/L CO2 26 22.0-30.0 mmol/L GAP 16.1 5-15 mEq/L BUN 11 9-20 mg/dl CREATT 0.70 0.66-1.25 mg/dl GFRAA 138 >60 ML/MIN EGFR 114 >60 ml/min GLU 141 74-100 mg/dl CA 9.0 8.4-10.2 mg/dl BILIT 0.7 0.2-1.3 mg/dl AST 36 17-59 U/L ALT 38 12-78 U/L TP 7.0 6.3-8.2 g/dl ALB 4.1 3.5-5.0 g/dl GLOB 2.9 1.3-3.2 g/dL AGRATIO 1.4 1.1-1.8 ALP 71 38-126 U/L M-Lipid Panel Reviewed date:02/07/2024 10:18:07 AM Interpretation: Performing Lab: Notes/Report: IF TSH IS ABNORMAL, REFLEX TO A T4F Patient Fasting? Y TRIG 220 30-150 mg/dl CHOL 142 140-200 mg/dl DLDL 66.39 100-129 mg/dL VLDL 44 0-40 mg/dL HDL 35 40-60 mg/dl CHLHDL 4.1 1-3.5 CT Scan : Chest, Lung Cancer Screening Reviewed date:11/03/2024 09:15:42 AM Interpretation: Performing Lab: Notes/Report: Reason For Referral Reason [facility] lung cancer scre ening 10/24 Diagnosis 1 Tobacco use disorder (F17.200) Referral Organization [facility] [place] Referring Provider First Name Betty Referring Provider Last Name Akilah Referring Provider Speciality [facility] Referral Priority Routine Medications Medication SIG (Take, Route, Frequency, Duration) Notes Start Date End Date Status Clopidogrel Bisulfate 75 mg TAKE ONE TABLET BY MOUTH EVERY DAY; Duration: 90 Active Levothyroxine Sodium 175 mcg TAKE ONE TABLET BY MOUTH EVERY DAY; Duration: 90 Active metFORMIN HCl 1000 MG 1 tab orally 2 times a day; Duration: 90 days Active Atorvastatin Calcium 40 MG 1 tab(s) orally once a day; Duration: 90 days Active Mounjaro 12.5 MG/0.5 ML DIRECTED SUBCUTANEOUSLY ONCE A WEEK; Duration: 28 DAYS *Please review and pick correct strength-formulat ion from [employer] options. If intended option is not shown, discontinue and re-order from Quick Search* 08/25/2024 Active Lansoprazole 30 MG 1 cap(s) orally once a day; Duration: 90 days Active Potassium Chloride ER 20 MEQ 1 tab(s) orally once a day; Duration: 90 days Active Ondansetron HCl 4 MG 1 tab(s) orally anju ry 8 hours; Duration: 10 days 06/20/2022 Active Lisinopril 10 mg TAKE ONE TABLET BY MOUTH EVERY DAY; Duration: 90 Active Tadalafil 5 MG 1 tab(s) orally once every 3 days PRN; Duration: 30 days Active Meloxicam 7.5 MG 1 tab(s) orally once a day; Duration: 90 days Active Immunizations Vaccine Route Administration Date Status Comme nts Boostrix IM Intramuscular 06/15/2022 Administered Prevnar PCV-20 (Pneumococcal conjugate 20) IM Intramuscular 06/15/2022 Administered Social History Tobacco Use: Social History Observation Description Date Details (start date - stop date) Former Smoker NA - NA Smoking: Question Answer Notes Are you a: former smoker How long has it been since you last smoked? 1-5 years Problems Problem Type SNOMED Code ICD Code Onset Dates Problem Status W/U Status Risk Notes Problem Hypocalcemia (5794007) Hypocalcemia (E83.51) Active confirmed Problem Panlobular emphysema (7859123) Panlobular emphysema (J43.1) Active confirmed Problem Balanitis (02419893) Balanitis (N48.1) Active confirmed Problem Nicotine dependence (61361422) Personal history of nicotine dependence (Z87.891) Active confirmed Problem Hypothyroidism (92824369) Hypothyroidism (acquired) (E03.9) Active confirmed Problem Type II diabetes mellitus without complication (633708978) Diabetes mellitus type 2, noninsulin dependent (E11.9) Active confirmed Problem Hyperlipidemia (15381990) Hyperlipemia, idiopathic familial (E78.5) Active confirmed Problem Essential hypertension (03480321) Hypertension, essential (I10) Active confirmed Problem Body mass index 30.00 to 34.99 (777228123024425) BMI 34.0-34.9,adult (Z68.34) Active confirmed Problem Chronic pain (15407274) Other chronic pain (G89.29) Active confirmed Problem Gastroesophageal reflux disease without esophagitis (252622225) Gastroesophageal reflux disease without esophagitis (K21.9) Active confirmed Problem Atherosclerosis of coronary artery without angina pectoris (917837010428369) Atherosclerosis of menominee coronary artery of menominee heart without angina pectoris (I25.10) Active confirmed Problem Erectile dysfunction (disorder) (087439875) Erectile dysfunction, unspecified erectile dysfunction type (N52.9) Active confirmed Problem Primary osteoarthritis (946022978) Primary osteoarthritis involving multiple joints (M15.0) Active confirmed Problem Left rotator cuff syndrome (749356674875293) Rotator cuff syndrome of left shoulder (M75.102) Active confirmed Problem Vasculopathic erectile dysfunction (disorder) (6222221237836) Vasculogenic erectile dysfunction, unspecified vasculogenic erectile dysfunction type (N52.9) Active confirmed Problem Goiter (4282545) Enlarged thyroi d (E04.9) Active confirmed Problem Tobacco use (568033368) Tobacco use disorder (F17.200) Active confirmed Problem History of iron deficiency anemia (668877027) History of iron deficiency anemia (Z86.2) Active confirmed Vital Signs Heart Rate 90 /min 08/25/2024 Temperature 97.9 degrees Fahrenheit 08/25/2024 Blood pressure diastolic 72 mm Hg 08/25/2024 Height 6 ft 1 in in 08/25/2024 Blood pressure systolic 118 mm Hg 08/25/2024 Weight 252 lbs 08/25/2024 BMI 33.24 kg/m2 08/25/2024 Encounters Encounter Location Date Provider Diagnosis [facility] [address] [place], [place] [address] 10/04/2024 Provider Migration Diabetes mellitus type 2, noninsulin dependent E11.9 and Erectile dysfunction, unspecified erectile dysfunction type N52.9 [facility] [address] [address] 02/01/2024 Betty McNees Diabetes mellitus ty pe 2, noninsulin dependent E11.9 ; Routine medical exam Z00.00 ; Hypothyroidism (acquired) E03.9 ; Hypertension, essential I10 ; Hyperlipemia, idiopathic familial E78.5 ; Atherosclerosis of menominee coronary artery of menominee heart without angina pectoris I25.10 ; History of iron deficiency anemia Z86.2 and Tobacco use disorder F17.200 [facility] [address] [address] 08/25/2024 Betty McNees Diabetes mellitus ty pe 2, noninsulin dependent E11.9 ; Atherosclerosis of menominee coronary artery of menominee heart without angina pectoris I25.10 ; Hypothyroidism (acquired) E03.9 ; Hypertension, essential I10 ; Hyperlipemia, idiopathic familial E78.5 ; Routine medical exam Z00.00 ; History of iron deficiency anemia Z86.2 ; Tobacco use disorder F17.200 and Erectile dysfunction, unspecified erectile dysfunction type N52.9 [facility] [address] [address] 01/11/2024 Betty McNees [facility] [address] [place] [address] 02/01/2024 Betty McNees [facility] [address] [facility] [address] [place] [address] 02/04/2024 Betty McNees [facility] [address] [address] 02/07/2024 Sly Besson [facility] [address] [facility] [address] [place] [address] 05/26/2024 Betty McNees [facility] [address] [place] [address] 05/26/2024 Betty McNees [facility] [address] [place] [address] 08/14/2024 Betty McNees [facility] [address] [place] [address] 08/25/2024 Betty McNees [facility] [address] [place] [address] 12/31/2024 Sly Besson [facility] [address] [place] [address] 01/05/2025 Betty McNees Pain in left hand M79.642 and Pain in left wrist M25.532 Assessments Encounter Date Diagnosis (ICD Code) Assessment Notes Treatment Notes Treatment Clinical Notes Section Notes 02/01/2024 Routine medical exam (ICD-10 - Z00.00) Colonoscopy utd. order provided for routine labs. does not take annual flu shot 02/01/2024 Diabetes mellitus type 2, noninsulin dependent (ICD-10 - E11.9) Increase in FSBS with decreased dose of Mounjaro. Still having better control than he did on Ozempic. Will titrate again when higher doses become available. Diabetic diet, exercise, weight loss discussed. Recommend eye exam. Will check A1C and treat as indicated 08/25/2024 Diabetes mellitus type 2, noninsulin dependent (ICD-10 - E11.9) Decrease to 12.5mg dose. Diabetic diet, exercise, weight loss discussed. Recommend eye exam. Will check A1C and treat as indicated 08/25/2024 Atherosclerosis of menominee coronary artery of menominee heart without angina pectoris (ICD-10 - I25.10) No acute angina. Keep FU with cardiology. DAPT, goal to optimize blood pressure, glucose and LDL control. 10/04/2024 Diabetes mellitus type 2, noninsulin dependent (ICD-10 - E11.9) 01/05/2025 Pain in left wrist (ICD-10 - M25.532) 01/05/2025 Pain in left hand (ICD-10 - M79.642) 08/25/2024 Hypothyroidism (acquired) (ICD-10 - E03.9) Following with ENT for thyroid nodules. Biopsy was benign. Will check TSH and adjust synthroid as indicated. 02/01/2024 Hypothyroidism (acquired) (ICD-10 - E03.9) Following with ENT for thyroid nodules. Biopsy was benign. Will check TSH and adjust synthroid as indicated. 02/01/2024 Hypertension, essential (ICD-10 - I10) Blood pressure at goal 08/25/2024 Hypertension, essential (ICD-10 - I10) Blood pressure at goal 08/25/2024 Hyperlipemia, idiopathic familial (ICD-10 - E78.5) Tolerating statin well with no myalgias 02/01/2024 Hyperlipemia, idiopathic familial (ICD-10 - E78.5) Tolerating statin well with no myalgias 02/01/2024 Atherosclerosis of menominee coronary artery of menominee heart without angina pectoris (ICD-10 - I25.10) No acute angina. Keep FU with cardiology. DAPT, goal to optimize blood pressure, glucose and LDL control. 08/25/2024 Routine medical exam (ICD-10 - Z00.00) Colonoscopy utd. order provided for routine labs. does not take annual flu shot 08/25/2024 History of iron deficiency anemia (ICD-10 - Z86.2) Will check labs and treat as indicated 02/01/2024 History of iron deficiency anemia (ICD-10 - Z86.2) Reports H/o YNES in the past. Will check labs and treat as indicated 08/25/2024 Tobacco use disorder (ICD-10 - F17.200) Stopped smoking [address] of chest is due 10/24, will arrange 02/01/2024 Tobacco use disorder (ICD-10 - F17.200) Stopped smoking [address] of chest is UTD 10/04/2024 Erectile dysfunction, unspecified erectile dysfunction type (ICD-10 - N52.9) 08/25/2024 Erectile dysfunction, unspecified erectile dysfunction type (ICD-10 - N52.9) Change to cialis. MOA and SE profile discussed. Patient has used in the past, tolerated well Plan Of Treatment Pending Test Test Name Order Date X ray : Hand, Left 01/05/2025 X ray : Wrist, Left 01/05/2025 Ultrasound : Thyroid 09/25/2022 HIDA scan 06/27/2018 Physical Therapy 08/09/2018 C-FERRITIN 04/01/2020 C-CBC 03/30/2020 C-CBC 10/11/2017 C-CBC 01/06/2020 C-CBC 04/29/2019 C-CMP 04/29/2019 C-CMP 01/06/2020 C-CMP 10/11/2017 C-CMP 03/30/2020 C-LIPID PANEL 03/30/2020 C-LIPID PANEL 10/11/2017 C-LIPID PANEL 01/06/2020 C-LIPID PANEL 04/29/2019 C-TSH 04/29/2019 C-TSH 01/06/2020 C-TSH 10/11/2017 C-TSH 03/30/2020 C-IRON 04/01/2020 C-HGBA1C 01/06/2020 C-HGBA1C 04/29/2019 C-HGBA1C 03/30/2020 C-TIBC 04/01/2020 Comp. Metabolic Panel (14) 06/15/2022 TSH 06/15/2022 CBC With Differential/Platelet Ferritin, Serum 06/15/2022 Lipid Panel 06/15/2022 Hemoglobin A1c 06/15/2022 M-Complete Blood Count Auto Diff 024 M-Complete Blood Count Auto Diff 023 M-Comprehensive Metabolic Panel 09/17/19 24 M-Hemoglobin A1C 09/17/2023 M-Ferritin 06/22/2023 M-Lipid Panel 09/17/2023 M-Thyroid Stimulating Hormone 09/17/2023 M-Iron and TIBC 09/17/2023 M-Iron and TIBC 06/22/2023 CT Scan : Chest, Lung Cancer Screening 0 09/25/2022 LIPID PANEL, STANDARD (7600) 06/11/2023 LIPID PANEL, STANDARD (7600) 02/01/2024 COMPREHENSIVE METABOLIC PANEL (68395) COMPREHENSIVE METABOLIC PANEL (50915) COMPREHENSIVE METABOLIC PANEL (11823) CBC (INCLUDES DIFF/PLT) (6399) 5 CBC (INCLUDES DIFF/PLT) (6399) HEMOGLOBIN A1c (496) 02/01/2024 HEMOGLOBIN A1c (496) 08/25/2024 HEMOGLOBIN A1c (496) 06/11/2023 TSH (899) 08/25/2024 TSH W/REFLEX TO FT4 (29434) 02/01/2024 TSH W/REFLEX TO FT4 (27648) 06/11/2023 Future Test Test Name Order Date M-Basic Metabolic Panel 08/10/2023 Next Appt Details Provider Name:Betty Fu Jluis Corrigan, 02/13/2025 10:30:00 AM, [address] [facility], [place], [address], Insurance Providers Payer Name Payer Address Payer Phone Subscriber Number Group Number Insured Name Patient Relationship to Insured Coverage Start Date Coverage End Date [facility] [address] [place] [address] [id number] Oc Neal Self - patient is the insured Medical (General) History Medical History History ICD Code coronary atherosclerosis-heart catheter 2016 with nonabsorbable lesions hyperlipidemia hypertension acquired hypothyroidism tobacco use disorder EGD July 2018 with severe reflux duodenitis and esophagitis and mild stricture Negative AAA screening 02/19 and repeated 07/24? Also normal Low Dose CT 01/2021 with 6 mo nth f/u recommendHad CT of chest in August 2021 and 10/22 for lung cancer screening with no new lesions. Surgical History Surgery Date(Month/Year) cardiac cath 12/2016 EGD 07/2018 egd/colonoscopy 03/2020 Hospitalization History Reason Date(Month/Year) Covid 08/2021
--- OUTSIDE RECORDS SUMMARY | 2025-01-05 15:18 | XMS_ITS ---
Author Organization Unknown Medications Medication Instructions Effective Dates (start - stop) Status linagliptin 5 MG Oral Tablet [Tradjenta] 8883-62-49V83:00:00.000+00:0 0 - Completed metformin hydrochloride 1000 MG Oral Tablet 7771-63-25G98:00:00.000+00:0 0 - Completed levothyroxine sodium 0.175 M G Oral Tablet 4259-87-95O72:00:00.000+00:0 0 - Completed semaglutide 14 MG Oral Table t [Rybelsus] 5076-00-43B82:00:00.000+00:0 0 - Completed metformin hydrochloride 1000 MG Oral Tablet 6468-07-91Y79:00:00.000+00:0 0 - Completed metformin hydrochloride 1000 MG Oral Tablet 0124-46-94Z28:00:00.000+00:0 0 - Completed levothyroxine sodium 0.175 M G Oral Tablet 0833-43-16X86:00:00.000+00:0 0 - Completed semaglutide 14 MG Oral Table t [Rybelsus] 9221-87-28J94:00:00.000+00:0 0 - Completed semaglutide 7 MG Oral Tablet [Rybelsus] 0986-82-62U04:00:00.000+00:0 0 - Completed levothyroxine sodium 0.175 M G Oral Tablet 6651-85-95E73:00:00.000+00:0 0 - Completed linagliptin 5 MG Oral Tablet [Tradjenta] 7307-11-57M16:00:00.000+00:0 0 - Completed levothyroxine sodium 0.175 M G Oral Tablet 4109-11-04W62:00:00.000+00:0 0 - Completed semaglutide 14 MG Oral Table t [Rybelsus] 2539-62-99D38:00:00.000+00:0 0 - Completed levothyroxine sodium 0.175 M G Oral Tablet 2478-08-14X36:00:00.000+00:0 0 - Completed levothyroxine sodium 0.175 M G Oral Tablet 6422-14-34C96:00:00.000+00:0 0 - Completed levothyroxine sodium 0.175 M G Oral Tablet 0021-43-63G72:00:00.000+00:0 0 - Completed levothyroxine sodium 0.175 M G Oral Tablet 2397-80-21E26:00:00.000+00:0 0 - Completed linagliptin 5 MG Oral Tablet [Tradjenta] 6663-65-51E58:00:00.000+00:0 0 - Completed semaglutide 7 MG Oral Tablet [Rybelsus] 3466-98-73P09:00:00.000+00:0 0 - Completed linagliptin 5 MG Oral Tablet [Tradjenta] 0956-22-99H89:00:00.000+00:0 0 - Completed semaglutide 7 MG Oral Tablet [Rybelsus] 6630-88-03R71:00:00.000+00:0 0 - Completed semaglutide 7 MG Oral Tablet [Rybelsus] 7247-45-99Z22:00:00.000+00:0 0 - Completed metformin hydrochloride 1000 MG Oral Tablet 2070-89-74E24:00:00.000+00:0 0 - Completed levothyroxine sodium 0.175 M G Oral Tablet 3721-83-27I45:00:00.000+00:0 0 - Completed levothyroxine sodium 0.175 M G Oral Tablet 7003-31-09N17:00:00.000+00:0 0 - Completed linagliptin 5 MG Oral Tablet [Tradjenta] 7239-70-87E04:00:00.000+00:0 0 - Completed 0.5 ML dulaglutide 1.5 MG/ML Auto-Injector [[facility]] 2125-71-71B63:00:00.000+00:0 0 - Completed metformin hydrochloride 1000 MG Oral Tablet 8152-86-73W42:00:00.000+00:0 0 - Completed meloxicam 7.5 MG Oral Tablet 09-05-06:00:00.000+00:00 - Completed metformin hydrochloride 1000 MG Oral Tablet 0484-45-42B67:00:00.000+00:0 0 - Completed lisinopril 10 MG Oral Tablet 202 09-04-05:00:00.000+00:00 - Completed clopidogrel 75 MG Oral Tablet 20 21-09-26:00:00.000+00:00 - Completed atorvastatin 40 MG Oral Tablet 2 229-85-54O22:00:00.000+00:00 - Completed lisinopril 10 MG Oral Tablet 202 09-04-03:00:00.000+00:00 - Completed promethazine hydrochloride 1 2.5 MG Oral Tablet 4631-50-42W92:00:00.000+00:0 0 - Completed lisinopril 10 MG Oral Tablet 08-10-23:00:00.000+00:00 - Completed lisinopril 10 MG Oral Tablet 08-11-23:00:00.000+00:00 - Completed diclofenac sodium 75 MG Ivory yed Release Oral Tablet 2034-00-60C84:00:00.000+00:0 0 - Completed clopidogrel 75 MG Oral Tablet 23-03-16:00:00.000+00:00 - Completed lisinopril 10 MG Oral Tablet 09-01-05:00:00.000+00:00 - Completed meloxicam 7.5 MG Oral Tablet 09-03-04:00:00.000+00:00 - Completed lisinopril 10 MG Oral Tablet 08-09-14:00:00.000+00:00 - Completed lisinopril 10 MG Oral Tablet 09-03-03:00:00.000+00:00 - Completed lisinopril 10 MG Oral Tablet 202 08-31-01:00:00.000+00:00 - Completed atorvastatin 40 MG Oral Tablet 2 107-61-58A00:00:00.000+00:00 - Completed meloxicam 7.5 MG Oral Tablet 202 09-04-06:00:00.000+00:00 - Completed atorvastatin 40 MG Oral Tablet 2 883-29-81K81:00:00.000+00:00 - Completed atorvastatin 40 MG Oral Tablet 2 973-70-07L24:00:00.000+00:00 - Completed lisinopril 10 MG Oral Tablet 202 08-12-15:00:00.000+00:00 - Completed lisinopril 10 MG Oral Tablet 202 08-13-20:00:00.000+00:00 - Completed clopidogrel 75 MG Oral Tablet 20 22-12-22:00:00.000+00:00 - Completed clopidogrel 75 MG Oral Tablet 20 22-06-19:00:00.000+00:00 - Completed lisinopril 10 MG Oral Tablet 202 09-05-02:00:00.000+00:00 - Completed meloxicam 7.5 MG Oral Tablet 202 09-02-09:00:00.000+00:00 - Completed atorvastatin 40 MG Oral Tablet 2 688-10-60S56:00:00.000+00:00 - Completed ondansetron 4 MG Oral Tablet 09-02-09:00:00.000+00:00 - Completed ondansetron 4 MG Oral Tablet 08-13-20:00:00.000+00:00 - Completed atorvastatin 40 MG Oral Tablet 2 111-82-95A14:00:00.000+00:00 - Completed ketoconazole 20 MG/ML [facility] 1958-18-30I86:00:00.000+00:0 0 - Completed atorvastatin 40 MG Oral Tablet 2 638-03-33B32:00:00.000+00:00 - Completed atorvastatin 40 MG Oral Tablet 2 239-21-56C02:00:00.000+00:00 - Completed atorvastatin 40 MG Oral Tablet 2 140-74-03O90:00:00.000+00:00 - Completed atorvastatin 40 MG Oral Tablet 2 712-04-15M65:00:00.000+00:00 - Completed Patient Care team information Name Category Status Period Participants - - Proposed period not known -
--- NOTE | 2025-01-05 15:19 | XR_ITS ---
FINAL REPORT CLINICAL HISTORY: PAIN .fall last night pain, limited rom FINDINGS: LEFT HAND Three views demonstrate no acute fracture or dislocation. The visualized joint spaces are normally aligned. There is moderate DIP and PIP joint space narrowing. The soft tissues are unremarkable. IMPRESSION: No acute process. Reviewed, Interpreted and Dictated by Benson Juárez MD Transcribed by [place] Moore Authenticated and [facility]
--- NOTE | 2025-01-05 15:19 | XR_ITS ---
FINAL REPORT CLINICAL HISTORY: .fall last night pain, limited rom FINDINGS: LEFT WRIST Three views demonstrate no acute fracture or dislocation. The visualized joint spaces are normally aligned. There is soft tissue edema overlying the dorsum of the wrist. IMPRESSION: No acute bony abnormality. Reviewed, Interpreted and Dictated by Benson Juárez MD Transcribed by [place] Moore Authenticated and [facility]
== END 2025-01-05 23:59 | disposition home or self-care (01) ==
LOC: RAD 15:16
PROVIDERS: PCP Nurse Practitioner Family; Visit Provider Nurse Practitioner Family
DX: M25.532 Pain in left wrist (principal); M79.642 Pain in left hand
CPT/HCPCS: 73110; 73130